=== PATIENT | male | born 1940 | race Caucasian/White ===

== ENCOUNTER 2017-04-02 15:16 | Outpatient (CLI) | payer MEDICARE, MEDICAID | END 2017-04-02 15:17 | disposition home or self-care (01) | DX: R73.01 Impaired fasting glucose (principal); E78.5 Hyperlipidemia, unspecified; Z13.29 Encounter for screening for other suspected endocrine disorder; D53.9 Nutritional anemia, unspecified ==

== ENCOUNTER 2017-10-15 15:39 | Outpatient (CLI) | payer MEDICARE, MEDICAID ==
[2017-10-15 16:01] LABS: CREATININE 0.9 mg/dL (0.6-1.2)
== END 2017-10-15 15:40 | disposition home or self-care (01) ==
LOC: LAB 15:39
PROVIDERS: ATTEND Orthopaedic Surgery
DX: M54.5 Low back pain (principal); Z01.818 Encounter for other preprocedural examination; R79.89 Other specified abnormal findings of blood chemistry
CPT/HCPCS: 36415; 82565; 84520

== ENCOUNTER 2018-07-04 14:02 | Outpatient (CLI) | payer MEDICARE, MEDICAID ==
[2018-07-04 14:29] LABS: BASOPHILS % (AUTO) 0.8 %; EOSINOPHILS # (AUTO) 0.4 10^3/uL (0.0-0.7); EOSINOPHILS % (AUTO) 7.4 %; HGB - HEMOGLOBIN 15.2 g/dL (14.0-18.0); LYMPHOCYTES # (AUTO) 1.3 10^3/uL (1.5-3.5); MEAN CORPUSCULAR HGB CONC 34.7 g/dL (32.0-36.0); MEAN CORPUSCULAR VOLUME 95.1 fL (80.0-94.0); MONOCYTES # (AUTO) 0.5 10^3/uL (0.0-1.0); NEUTROPHILS # (AUTO) 3.6 10^3/uL (1.5-6.6); NEUTROPHILS % (AUTO) 60.8 %; PLT - PLATELET COUNT 227 10^3/uL (130-450); RED BLOOD COUNT 4.61 10^6/uL (4.70-6.10); RED CELL DISTRIBUTION WIDTH 13.2 % (12.0-15.0)
[2018-07-04 15:52] LABS: ALBUMIN 3.8 g/dL (3.2-5.5); ALBUMIN/GLOBULIN RATIO 1.2 (1.0-2.2); ALKALINE PHOSPHATASE 80 IU/L (42-121); ALT ALANINE AMINOTRANSFERASE 23 IU/L (10-60); AST ASPARTATE AMINOTRANSFERASE 24 IU/L (10-42); BILIRUBIN,TOTAL 0.6 mg/dL (0.2-1.0); BUN - BLOOD UREA NITROGEN 16 mg/dL (6-20); CARBON DIOXIDE - CO2 28 mmol/L (21-32); CHLORIDE 106 mmol/L (101-111); CHOL/HDL RATIO 4.2 (<5.0); CHOLESTEROL 257 mg/dL; GFR - MDRD 72 (>89); GLUCOSE 117 mg/dL (70-100); HDL CHOLESTEROL 61 mg/dL; LDL CHOLESTEROL,CALCULATED 183 mg/dL; SODIUM 140 mmol/L (135-145); TOTAL PROTEIN 7.1 g/dL (6.7-8.2); VLDL CHOLESTEROL 13 mg/dL
[2018-07-04 16:23] LABS: HB2 TOTAL 16.1 g/dL; HEMOGLOBIN A1C 0.63 g/dL; HEMOGLOBIN A1C % 5.7 % (4.6-6.2)
== END 2018-07-04 14:03 | disposition home or self-care (01) ==
LOC: LAB 14:02
PROVIDERS: ATTEND Nurse Practitioner Family
DX: E78.5 Hyperlipidemia, unspecified (principal); D53.9 Nutritional anemia, unspecified; R73.01 Impaired fasting glucose
CPT/HCPCS: 36415; 80053; 80061; 83036; 83721; 85025

== ENCOUNTER 2018-07-10 16:35 | Emergency (ER) | payer MEDICARE, MEDICAID ==
[2018-07-10 16:39] VITALS: BP 215/101
--- NOTE | 2018-07-10 17:32 | ED Physician Documentation ---
History of Present Illness - Stated complaint Stated Complaint: L ARM RASH - Chief complaint Chief Complaint: General - Additonal information Additional information: hx from pt 77 male had a blood draw recently has a red rash L AC where tape was and fears it is infected no fever feels tired no CP cough SOA abd pain NV Review of Systems Constitutional: reports: Fatigue. denies: Fever Cardiac: denies: Chest pain / pressure Respiratory: denies: Dyspnea, Cough GI: denies: Abdominal Pain, Nausea, Vomiting, Diarrhea Skin: reports: Rash PD PAST MEDICAL HISTORY - Present Medications Home Medications: Ambulatory Orders Medication Instructions Recorded Confirmed HYDROcod/ACETAM 5/325 [Vicodin 1 - 2 ea PO Q6H PRN 07/16/14 07/16/14 5/325] Multivitamin [Multivitamins] 1 each PO DAILY 07/16/14 07/16/14 Red Yeast Rice 1,200 mg PO DAILY 07/16/14 07/16/14 Gipsy Oil/Dale-3 Fatty Acids 1 cap PO DAILY 07/16/14 07/16/14 [Gipsy Oil 1,000 mg Softgel] Hydrocortisone 1% Oint 1 applic TP BID PRN #1 tube 07/10/18 [Hydrocortisone] Mupirocin Calcium [Bactroban] 1 applic TP BID #30 cream..g. 07/10/18 - Allergies Allergies/Adverse Reactions: Allergies Allergy/AdvReac Type Severity Reaction Status Date / Time No Known Drug Allergies Allergy Verified 07/16/14 08:44 PD ED PE NORMAL - Vitals Vital signs reviewed: Yes - General General: Alert and oriented X 3 - HEENT HEENT: PERRL, Other (good color) - Cardiac Cardiac: RRR - Respiratory Respiratory: No respiratory distress, Clear bilaterally - Derm Derm: Other (L AC clearly demarcated deeply erythematous slightly vesicular rectangle shaped rash to L AC) Results - Vitals Vitals: Vital Signs - 24 hr 07/10/18 16:38 Temperature 36 C L Heart Rate 95 Respiratory 18 Rate Blood Pressure 215/101 H O2 Saturation 94 Oxygen O2 Source Room air PD MEDICAL DECISION MAKING - ED course ED course: looks most like contact derm from tape Departure - Departure Disposition: 01 Home, Self Care Clinical Impression: Contact dermatitis Qualifiers: Contact dermatitis type: irritant Contact dermatitis trigger: unspecified trigger Qualified Code(s): L24.9 - Irritant contact dermatitis, unspecified cause Condition: Good Instructions: ED Dermatitis Contact Follow-Up: Nataliia Quintero ARNP [Primary Care Provider] - Prescriptions: Hydrocortisone 1% Oint [Hydrocortisone] 1 applic TP BID PRN #1 tube PRN Reason: rash Mupirocin Calcium [Bactroban] 1 applic TP BID #30 cream..g. Comments: Try the steroid cream first If not better after three days of steroid cream, change to the antibiotic cream Return if worse And please get your blood pressure rechecked - it was high today
== END 2018-07-10 17:47 | disposition home or self-care (01) ==
LOC: ED 16:35
DX: L25.8 Unspecified contact dermatitis due to other agents (principal); R03.0 Elevated blood-pressure reading, without diagnosis of hypertension
CPT/HCPCS: 99281; 99283

== ENCOUNTER 2018-11-05 09:39 | Outpatient (CLI) | payer MEDICARE, MEDICAID ==
--- NOTE | 2018-11-05 16:20 | MRI Report ---
Reason: CERVICAL RADICULOPATHY Procedure Date: 11/05/2018 Accession Number: [id number] / [id number] Procedure: MRI - Cervical Spine W/O CPT Code: FULL RESULT: MRI CERVICAL SPINE WITHOUT CONTRAST INDICATION: 78-year-old male with cervical radiculopathy. TECHNIQUE: 1. Sagittal STIR, T1 and T2. 2. Axial T1, T2 and T2* FFE. COMPARISON: 07/18/2015 FINDINGS: Postsurgical changes are again demonstrated with evidence of previous anterior cervical diskectomy and fusion (ACDF) at C6-C7. There is solid interbody fusion across the C6-C7 disk space. The coronal localizer demonstrates a dextroconvex upper thoracic scoliosis with compensatory mild levoconvex cervical curvature. In the sagittal plane, again demonstrated is mild retrolisthesis of C4 on C5 (2.5 mm) and anterolisthesis of C7 on T1 (3.6 mm) unchanged. Demonstrated is small disk space narrowing with moderate narrowing at C5-C6, moderate to severe narrowing at C4-C5, severe narrowing at C5-C6 and moderate narrowing at C7-T1. There is abnormal T1 hypointense and STIR hyperintense marrow signal change in the left pedicle, lateral mass and transverse process of T1. This could represent reactive marrow change secondary to left C7-T1 degenerative facet arthrosis or degenerative change at the left costovertebral articulation. There is no edema in adjacent soft tissues. The marrow signal intensity is otherwise unremarkable. Axial images: C2-C3: No disk herniation. There is thickening of the ligamenta flava with mass-effect on the dorsal aspect of the thecal sac, unchanged. No significant spinal stenosis. Left-sided degenerative facet arthrosis with associated bony hypertrophy gives rise to at least moderate left-sided foraminal stenosis, unchanged. No significant right foraminal narrowing. C3-C4: Posterior spondylotic bar, slightly larger centrally to the left than the right. Thickening of the ligamenta flava. Mass-effect on the ventral and dorsal aspects of the thecal sac without significant-appearing associated spinal stenosis. There is a small amount of CSF surrounding the cord. No evidence of cord impingement. Uncovertebral and facet hypertrophy give rise to foraminal narrowing that appears to be mild to moderate on the right and probably moderate on the left. C4-C5: Posterior spondylotic bar indenting the ventral aspect of the thecal sac and thickening of the ligamenta flava cause mass-effect on the dorsal aspect of the dural sac. The mid sagittal canal diameter is reduced to about 9.6 mm. The CSF surrounding the cord is almost completely effaced, similar to previous study. No flattening or deformity of the cord to suggest impingement. Uncovertebral and facet hypertrophy give rise to foraminal narrowing that appears to be moderate, bordering on moderate to severe on the right and moderate on the left (see sagittal sequence). C5-C6: No focal disk herniation. No spinal stenosis. Mild to moderate bony foraminal stenoses. C6-C7: No spinal stenosis or significant foraminal narrowing. C7-T1: Anterolisthesis with associated uncovering of the disk. No disk herniation or spinal stenosis. There appears to be severe right foraminal stenosis due to a combination of facet and uncovertebral hypertrophy (see images 12 and 13 of series 501). Unchanged. There is moderate to severe left-sided foraminal narrowing that appears to have shown interval progression since the prior study. Again demonstrated are small intraforaminal disk herniations at T1-T2 with associated mild to moderate foraminal stenoses. The spinal cord continues to have a normal signal intensity throughout. IMPRESSION: 1. Essentially stable appearance of the cervical spine when compared to previous study 07/17/2015. 2. Again demonstrated is multilevel chronic degenerative cervical spondylosis with associated spinal canal narrowing, most prominent at the C4-C5 disk level where the mid sagittal canal diameter is reduced to about 9.6 mm and the CSF surrounding the cord is almost completely effaced. No flattening or deformity of the cord is demonstrated to suggest cord impingement. 3. Again demonstrated are multilevel bony foraminal stenoses. With respect to the right-sided foramen, the most significant narrowing appears to be at C7-T1 where there is severe stenosis and possible compromise of the exiting right C8 nerve area. Recommend clinical correlation for right C8 radiculopathy. With respect to the left-sided neural foramina, the most significant stenosis is also at C7-T1 where the degree of foraminal narrowing appears to have progressed since the prior study. There could be compromise of exiting left C8 nerve root. Recommend clinical correlation for left C8 radiculopathy. 4. Noted is abnormal T1 hypointense and STIR hyperintense marrow signal in the left pedicle, lateral mass, and transverse process of T1. This probably represents reactive marrow edema secondary to degenerative joint disease at the left C7-T1 facet joint or the left costovertebral/costotransverse articulation. The possibility of infection is considered less likely. Clinical correlation is advised. In particular, is there any elevation of the WBC, CRP or ESR to suggest the possibility of infection?
== END 2018-11-05 09:40 | disposition home or self-care (01) ==
LOC: DI 09:39
PROVIDERS: ATTEND Orthopaedic Surgery
DX: M47.22 Other spondylosis with radiculopathy, cervical region (principal); M48.02 Spinal stenosis, cervical region
CPT/HCPCS: 72141

== ENCOUNTER 2018-11-20 07:25 | Day surgery (SDC) | payer MEDICARE, MEDICAID ==
[2018-11-20] MEDS ORDERED: LACTATED RINGERS 1,000 ML IV ONE ×2 (07:49→09:21)
[2018-11-20] MEDS ORDERED: fentaNYL 250 MCG/5 ML VIAL IVP ONE (08:41)
[2018-11-20] MEDS ORDERED: MIDAZOLAM 2 MG/2 ML VIAL IVP ONE (08:41)
[2018-11-20] MEDS ORDERED: LIDO GARGLE 30 ML BOTTLE TOP ONE (08:45)
[2018-11-20] MEDS ORDERED: LIDO GARGLE 30 ML BOTTLE ONE (08:48)
[2018-11-20 10:05] VITALS: BP 131/68
== END 2018-11-20 07:26 | disposition home or self-care (01) ==
LOC: SDS 07:25
PROVIDERS: ATTEND Internal Medicine Gastroenterology
PROC: 0DB38ZX Excision of Lower Esophagus, Via Natural or Artificial Opening Endoscopic, Diagnostic (ICD-10-PCS; 2018-11-20)
PROC: 0DB78ZX Excision of Stomach, Pylorus, Via Natural or Artificial Opening Endoscopic, Diagnostic (ICD-10-PCS; 2018-11-20)
PROC: 0DB28ZX Excision of Middle Esophagus, Via Natural or Artificial Opening Endoscopic, Diagnostic (ICD-10-PCS; 2018-11-20)
PROC: 0DBP8ZX Excision of Rectum, Via Natural or Artificial Opening Endoscopic, Diagnostic (ICD-10-PCS; principal; 2018-11-20 08:45)
PROC: 0DBN8ZZ Excision of Sigmoid Colon, Via Natural or Artificial Opening Endoscopic (ICD-10-PCS; 2018-11-20 08:45)
DX: R19.4 Change in bowel habit (principal); K21.9 Gastro-esophageal reflux disease without esophagitis; R13.10 Dysphagia, unspecified; D12.5 Benign neoplasm of sigmoid colon; K62.1 Rectal polyp; K57.30 Diverticulosis of large intestine without perforation or abscess without bleeding; K31.9 Disease of stomach and duodenum, unspecified; K29.80 Duodenitis without bleeding
CPT/HCPCS: 43239; 45380; 87081; A9270; J3010; J7120

== ENCOUNTER 2019-05-04 13:38 | Outpatient (CLI) | payer MEDICARE, MEDICAID ==
[2019-05-04 14:21] LABS: BASOPHILS % (AUTO) 0.5 %; EOSINOPHILS # (AUTO) 0.4 10^3/uL (0.0-0.7); EOSINOPHILS % (AUTO) 7.1 %; HGB - HEMOGLOBIN 15.1 g/dL (14.0-18.0); LYMPHOCYTES # (AUTO) 1.4 10^3/uL (1.5-3.5); LYMPHOCYTES % (AUTO) 23.4 %; MEAN CORPUSCULAR HEMOGLOBIN 32.5 pg (27.0-31.0); MEAN CORPUSCULAR VOLUME 98.3 fL (80.0-94.0); MEAN PLATELET VOLUME 10.2 fL (7.4-11.4); MONOCYTES # (AUTO) 0.5 10^3/uL (0.0-1.0); MONOCYTES % (AUTO) 8.8 %; NEUTROPHILS # (AUTO) 3.5 10^3/uL (1.5-6.6); NEUTROPHILS % (AUTO) 59.9 %; PLT - PLATELET COUNT 224 10^3/uL (130-450); RED BLOOD COUNT 4.65 10^6/uL (4.70-6.10); RED CELL DISTRIBUTION WIDTH 13.1 % (12.0-15.0); WHITE BLOOD COUNT 5.9 x10^3/uL (4.8-10.8)
[2019-05-04 14:28] LABS: BILIRUBIN,URINE NEGATIVE (NEGATIVE); GLUCOSE, URINE (UA) NEGATIVE (NEGATIVE); KETONES,URINE (UA) NEGATIVE (NEGATIVE); LEUKOCYTE ESTERASE, URINE SMALL (NEGATIVE); NITRITE,URINE NEGATIVE (NEGATIVE); OCCULT BLOOD,URINE TRACE-INTA (NEGATIVE); PH,URINE 7.5 PH (5.0-7.5); PROTEIN,URINE NEGATIVE (NEGATIVE); UROBILINOGEN,URINE 0.2 (NORMAL) E.U./dL (NORMAL)
[2019-05-04 14:30] LABS: CLARITY,URINE CLEAR (CLEAR)
[2019-05-04 14:32] LABS: ALBUMIN 3.9 g/dL (3.2-5.5); ALBUMIN/GLOBULIN RATIO 1.1 (1.0-2.2); ALKALINE PHOSPHATASE 80 IU/L (42-121); ALT ALANINE AMINOTRANSFERASE 14 IU/L (10-60); AST ASPARTATE AMINOTRANSFERASE 16 IU/L (10-42); BILIRUBIN,TOTAL 0.8 mg/dL (0.2-1.0); BUN - BLOOD UREA NITROGEN 16 mg/dL (6-20); CALCIUM 9.4 mg/dL (8.5-10.3); CARBON DIOXIDE - CO2 29 mmol/L (21-32); CHLORIDE 106 mmol/L (101-111); CHOL/HDL RATIO 4.3 (<5.0); CHOLESTEROL 221 mg/dL; CREATININE 0.9 mg/dL (0.6-1.2); GFR - MDRD 81 (>89); GLUCOSE 108 mg/dL (70-100); HDL CHOLESTEROL 52 mg/dL; LDL CHOLESTEROL,CALCULATED 156 mg/dL; SODIUM 144 mmol/L (135-145); TOTAL PROTEIN 7.3 g/dL (6.7-8.2); VLDL CHOLESTEROL 13 mg/dL
[2019-05-04 14:39] LABS: BACTERIA,URINE None Seen /HPF (None Seen); RBC,URINE 0-5 /HPF (0-5); SQUAMOUS EPITHELIAL CELL,UR MOD Squamous (<= Few)
[2019-05-05 11:46] LABS: HEMOGLOBIN A1C 0.71 g/dL; HEMOGLOBIN A1C % 6.2 % (4.6-6.2)
== END 2019-05-04 13:39 | disposition home or self-care (01) ==
LOC: LAB 13:38
PROVIDERS: ATTEND Internal Medicine
DX: Z79.899 Other long term (current) drug therapy (principal); R73.01 Impaired fasting glucose; F41.9 Anxiety disorder, unspecified; I25.10 Atherosclerotic heart disease of native coronary artery without angina pectoris; M48.00 Spinal stenosis, site unspecified
CPT/HCPCS: 36415; 80053; 80061; 81001; 81003; 83036; 83721; 84443; 85025; 87086

== ENCOUNTER 2019-05-11 13:27 | Outpatient (CLI) | payer MEDICARE, MEDICAID ==
--- NOTE | 2019-05-12 15:53 | CT Report ---
Reason: LUNG CANCER SCREENING Procedure Date: 05/11/2019 Accession Number: [id number] / [id number] Procedure: CT - Low Dose Lung Cancer Screen CPT Code: FULL RESULT: EXAM CT LUNG SCREEN EXAM DATE: 05/11/2019 02:00 PM. HISTORY: 78-year-old patient with history of smoking, [id number] smoking history. Currently smoking: Unknown. Years since quitting: Unknown. COMPARISON: ABDOMEN/PELVIS W/O 10/26/2013 2:41 PM. TECHNIQUE: CT examination of the entire thorax without contrast was performed using low-dose technique. Thin section coronal, axial, sagittal and MIP axial images were obtained. In accordance with CT protocol optimization, one or more of the following dose reduction techniques were utilized for this exam: automated exposure control, adjustment of mA and/or KV based on patient size, or use of iterative reconstructive technique. FINDINGS: Nodules: Several small subpleural nodules are present bilaterally measuring no more than 3 mm, typically benign lymph nodes. No parenchymal nodules identified. Right upper lobe: None. Right middle lobe: None. Right lower lobe: None. Left upper lobe: None. Left lower lobe: None. Emphysema: Mild changes of some centrilobular emphysema present about the upper guard and lower lobes. Pleura: Unremarkable. Aorta: Unremarkable. Mediastinum: Unremarkable. Coronary calcifications: Mild diffuse coronary arterial vascular calcifications present. Coronary artery bypass grafting has been performed. Other pulmonary findings: No consolidation, effusions or edema. Other extrapulmonary findings: A probable simple cyst of the right hepatic lobe measuring 2.9 cm present. IMPRESSION: Lung-RADS ASSESSMENT CATEGORY: 1 - negative. No suspicious pulmonary nodules identified. Probability of malignancy: Less than 1%. RECOMMENDATION: Recommended follow up in 12 months based on ACR Lung-RADS Version 1.1 Guidelines. [facility]IA
== END 2019-05-11 13:28 | disposition home or self-care (01) ==
LOC: DI 13:27
PROVIDERS: ATTEND Internal Medicine
DX: Z12.2 Encounter for screening for malignant neoplasm of respiratory organs (principal); J43.9 Emphysema, unspecified; Z87.891 Personal history of nicotine dependence

== ENCOUNTER 2020-03-30 15:22 | Outpatient (CLI) | payer MEDICARE, MEDICAID | END 2020-03-30 15:23 | disposition home or self-care (01) | LOC: LAB 15:22 | PROVIDERS: ATTEND Internal Medicine | DX: Z11.59 Encounter for screening for other viral diseases (principal) | CPT/HCPCS: 81599 ==

== ENCOUNTER 2020-04-06 15:24 | Outpatient (CLI) | payer MEDICARE, MEDICAID ==
--- NOTE | 2020-04-06 17:01 | MRI Report ---
PROCEDURE: Thoracic Spine W/O INDICATIONS: MID THORACIC PAIN TECHNIQUE: Noncontrast sagittal T1 spine echo and T2 fast spin echo, sagittal STIR, axial T1 and T2 fast spin ec ho through the thoracic spine. COMPARISON: None. FINDINGS: Image quality: Excellent. Alignment and Curvature: There is normal bony alignment. Bone Marrow: Marrow is of normal overall signal. No acute vertebral body compression fractures. Old mild compressions of T8, T11, and T12. Spinal Cord: Visualized spinal cord is normal in size and signal. Paraspinous Soft Tissues: No paravertebral masses. Miscellaneous: On axial images, central canal and foramina appear widely patent at all scanned level s. There is a mild right posterior disc protrusion at T6-T7. There is minimal posterior disc bulge at T9 -T10. IMPRESSION: 1. Normal thoracic cord signal and caliber. No canal stenosis or foraminal stenosis. 2. Mild right posterior disc protrusion at T6-T7 without significant canal compromise. 3. Multiple old mild compressions. Reviewed by: Ag Moore MD on 04/06/2020 5:00 PM PDT Approved by: Ag Moore MD on 04/06/2020 5:00 PM PDT Station ID: [id number]
== END 2020-04-06 15:25 | disposition home or self-care (01) ==
LOC: DI 15:24
PROVIDERS: ATTEND Orthopaedic Surgery
DX: M51.24 Other intervertebral disc displacement, thoracic region (principal); M51.84 Other intervertebral disc disorders, thoracic region
CPT/HCPCS: 72146

== ENCOUNTER 2021-06-05 13:42 | Outpatient (CLI) | payer MEDICARE, MEDICAID ==
--- NOTE | 2021-06-05 16:58 | MRI Report ---
PROCEDURE: Shoulder RT W/O INDICATIONS: RIGHT SHOULDER PAIN TECHNIQUE: Noncontrast oblique coronal inversion recovery, oblique sagittal T1 spin echo and inversion recovery, axial T1 spin echo and inversion recovery through the shoulder. COMPARISON: None. FINDINGS: Image quality: Excellent. Rotator cuff: There is full-thickness tearing of the supraspinatus tendon from its distal insertion measuring approximately 11 mm in anteroposterior dimension with up to 25 mm of proximal tendon retrac tion. The infraspinatus tendon demonstrates moderate tendinosis and low-grade intrasubstance tearing. The teres minor and subscapularis tendons are intact. There is mild atrophy of the supraspinatus and infraspinatus muscles with grade 2 fatty infiltration of the infraspinatus muscle. Bones and bursae: No acute trabecular bone injury. Mild degenerative spurring is seen in the glenoid rim. Moderate degenerative changes are seen at the acromioclavicular joint. A moderate glenohumeral j oint effusion communicative the subacromial/subdeltoid bursa. Capsule and soft tissues: There is nondisplaced tearing of the superior to posterosuperior labrum, w hich may be chronic. There is complete tearing and distal retraction of the biceps long head tendon. Fluid is seen in the region of the proximal biceps muscle, included only on sagittal images. Partial effacement of the normal fat is seen in the rotator interval. The glenohumeral ligaments are intact. IMPRESSION: 1. Full-thickness tearing of the supraspinatus tendon from its distal insertion measuring 11 mm in a nteroposterior dimension with 25 mm of proximal tendon retraction. 2. Moderate infraspinatus tendinosis with superimposed low-grade intrasubstance tearing at the dista l insertion. 3. Complete tearing and distal retraction of the biceps long head tendon. Fluid or hemorrhage is par tially imaged in the region of the proximal biceps muscle that is not well evaluated. 4. Nondisplaced tearing of the superior to posterosuperior labrum, which may be chronic. 5. Moderate acromioclavicular joint osteoarthrosis. 6. A moderate glenohumeral effusion communicates with the subacromial/subdeltoid and subcoracoid bur sa. Reviewed by: Khoi Saleh MD on 06/05/2021 4:57 PM PDT Approved by: Khoi Saleh MD on 06/05/2021 4:57 PM PDT Station ID: [id number]
== END 2021-06-05 13:43 | disposition home or self-care (01) ==
LOC: DI 13:42
PROVIDERS: ATTEND Internal Medicine
DX: M75.121 Complete rotator cuff tear or rupture of right shoulder, not specified as traumatic (principal); S46.111A Strain of muscle, fascia and tendon of long head of biceps, right arm, initial encounter; S43.491A Other sprain of right shoulder joint, initial encounter; M19.011 Primary osteoarthritis, right shoulder; M25.411 Effusion, right shoulder

== ENCOUNTER 2021-07-11 13:30 | Outpatient (CLI) | payer MEDICARE, MEDICAID ==
--- NOTE | 2021-07-12 09:41 | XRAY Report ---
PROCEDURE: Shoulder 3 View RT INDICATIONS: RIGHT SHOULDER PAIN TECHNIQUE: 4 views of the shoulder were acquired. COMPARISON: None. FINDINGS: Bones: No fractures or dislocations. There is mild to moderate acromioclavicular joint degeneration . There is mild lateral downsloping of the acromion with mild inferior spurring laterally. No suspici ous bony lesions. Visualized ribs appear intact. Soft tissues: No suspicious soft tissue calcifications. IMPRESSION: 1. Mild to moderate acromioclavicular joint degeneration. 2. Mild lateral downsloping of the acromion with mild inferior spurring may be associated with rotato r cuff tearing. Reviewed by: Ronni Hassan MD on 07/12/2021 9:40 AM PDT Approved by: Ronni Hassan MD on 07/12/2021 9:40 AM PDT Station ID: [id number]
== END 2021-07-11 23:59 ==
LOC: DI.N 13:30
PROVIDERS: ATTEND Orthopaedic Surgery
DX: M19.011 Primary osteoarthritis, right shoulder (principal); R93.6 Abnormal findings on diagnostic imaging of limbs

== ENCOUNTER 2021-11-08 14:51 | Outpatient (CLI) | payer MEDICARE, MEDICAID ==
[2021-11-08 15:27] LABS: BASOPHILS % (AUTO) 0.5 %; EOSINOPHILS # (AUTO) 0.1 10^3/uL (0.0-0.7); EOSINOPHILS % (AUTO) 2.3 %; HCT - HEMATOCRIT 45.7 % (42.0-52.0); HGB - HEMOGLOBIN 14.9 g/dL (14.0-18.0); LYMPHOCYTES # (AUTO) 1.4 10^3/uL (1.5-3.5); LYMPHOCYTES % (AUTO) 24.7 %; MEAN CORPUSCULAR HGB CONC 32.6 g/dL (32.0-36.0); MEAN CORPUSCULAR VOLUME 98.1 fL (80.0-94.0); MEAN PLATELET VOLUME 10.5 fL (7.4-11.4); MONOCYTES # (AUTO) 0.5 10^3/uL (0.0-1.0); MONOCYTES % (AUTO) 8.6 %; NEUTROPHILS # (AUTO) 3.6 10^3/uL (1.5-6.6); NEUTROPHILS % (AUTO) 63.5 %; PLT - PLATELET COUNT 204 10^3/uL (130-450); RED BLOOD COUNT 4.66 10^6/uL (4.70-6.10); RED CELL DISTRIBUTION WIDTH 12.6 % (12.0-15.0); WHITE BLOOD COUNT 5.6 x10^3/uL (4.8-10.8)
[2021-11-08 15:38] LABS: ALBUMIN 4.3 g/dL (3.2-5.5); ALBUMIN/GLOBULIN RATIO 1.3 (1.0-2.2); ALKALINE PHOSPHATASE 83 IU/L (42-121); ALT ALANINE AMINOTRANSFERASE 17 IU/L (10-60); AST ASPARTATE AMINOTRANSFERASE 23 IU/L (10-42); BILIRUBIN,TOTAL 0.8 mg/dL (0.2-1.0); BUN - BLOOD UREA NITROGEN 16 mg/dL (6-20); CALCIUM 9.4 mg/dL (8.5-10.3); CARBON DIOXIDE - CO2 30 mmol/L (21-32); CHLORIDE 101 mmol/L (101-111); CHOL/HDL RATIO 3.9 (<5.0); CHOLESTEROL 228 mg/dL; CREATININE 1.1 mg/dL (0.6-1.2); GFR - MDRD 64 (>89); GLUCOSE 122 mg/dL (70-100); HDL CHOLESTEROL 58 mg/dL; LDL CHOLESTEROL,CALCULATED 158 mg/dL; LDL/HDL RATIO 2.7 (<3.6); POTASSIUM 4.3 mmol/L (3.5-5.0); SODIUM 140 mmol/L (135-145); TOTAL PROTEIN 7.5 g/dL (6.7-8.2); TRIGLYCERIDES 58 mg/dL; VLDL CHOLESTEROL 12 mg/dL
[2021-11-08 15:40] LABS: THYROID STIMULATING HORMONE 2.1 uIU/mL (0.34-5.60)
[2021-11-08 20:20] LABS: ESTIMATED AVERAGE GLUCOSE 117 mg/dL (70-100); HEMOGLOBIN A1c% 5.7 % (4.27-6.07)
[2021-11-10 23:41] LABS: ALBUMIN 4.2 g/dL (3.8-4.8); ALPHA 1 GLOBULIN 0.3 g/dL (0.2-0.3); ALPHA 2 GLOBULIN 0.7 g/dL (0.5-0.9); BETA 1 GLOBULIN 0.4 g/dL (0.4-0.6); BETA 2 GLOBULIN 0.3 g/dL (0.2-0.5); GAMMA GLOBULIN 1.2 g/dL (0.8-1.7)
== END 2021-11-08 14:52 | disposition home or self-care (01) ==
LOC: LAB 14:51
PROVIDERS: ATTEND Internal Medicine
DX: Z13.6 Encounter for screening for cardiovascular disorders (principal); Z79.899 Other long term (current) drug therapy; R73.9 Hyperglycemia, unspecified; G64 Other disorders of peripheral nervous system; N40.0 Benign prostatic hyperplasia without lower urinary tract symptoms; K22.70 Barrett's esophagus without dysplasia; I10 Essential (primary) hypertension
CPT/HCPCS: 36415; 80053; 80061; 82607; 83036; 83721; 84155; 84165; 84443; 85025

== ENCOUNTER 2021-11-14 15:06 | Outpatient (CLI) | payer MEDICARE, MEDICAID | END 2021-11-14 15:07 | disposition home or self-care (01) | LOC: LAB 15:06 | PROVIDERS: ATTEND Internal Medicine | DX: G64 Other disorders of peripheral nervous system (principal); Z13.6 Encounter for screening for cardiovascular disorders; Z79.899 Other long term (current) drug therapy; R73.9 Hyperglycemia, unspecified; N40.0 Benign prostatic hyperplasia without lower urinary tract symptoms; I10 Essential (primary) hypertension | CPT/HCPCS: 82570; 84156; 84166; 86335 ==

== ENCOUNTER 2021-11-21 08:25 | Outpatient (CLI) | payer MEDICARE, MEDICAID | END 2021-11-21 08:26 | disposition home or self-care (01) | LOC: LAB.R 08:25 | PROVIDERS: ATTEND Internal Medicine | DX: R51.9 Headache, unspecified (principal); G62.9 Polyneuropathy, unspecified | CPT/HCPCS: 85651; 86140 ==

== ENCOUNTER 2021-12-21 14:05 | Outpatient (CLI) | payer MEDICARE, MEDICAID ==
--- NOTE | 2021-12-22 08:36 | XRAY Report ---
PROCEDURE: Knee 4 View BILAT INDICATIONS: KNEE PAIN TECHNIQUE: 3 views of the left and right knee(s) were acquired. COMPARISON: X-ray knees, bilateral, 05/12. FINDINGS: Bones: No fractures or dislocations. No suspicious bony lesions. There is moderate osteoarthritic changes in right knee and mild osteoarthritic shortness in left knee. Osteopenia. Soft tissues: Small right knee joint effusion. No suspicious soft tissue calcifications. IMPRESSION: 1. Osteoarthritis, moderate in the right knee and mild in the left knee. 2. Osteopenia. 3. Small right knee joint effusion. Reviewed by: Kaila Chowdary MD on 12/22/2021 8:34 AM PDT Approved by: Kaila Chowdary MD on 12/22/2021 8:34 AM PDT Station ID: [id number]
== END 2021-12-21 14:06 | disposition home or self-care (01) ==
LOC: DI 14:05
PROVIDERS: ATTEND Physician Assistant
DX: M17.0 Bilateral primary osteoarthritis of knee (principal); M85.862 Other specified disorders of bone density and structure, left lower leg; M85.861 Other specified disorders of bone density and structure, right lower leg; M25.461 Effusion, right knee

== ENCOUNTER 2022-05-21 14:41 | Outpatient (CLI) | payer MEDICARE, MEDICAID ==
[2022-05-21 14:57] LABS: BASOPHILS % (AUTO) 0.3 %; EOSINOPHILS # (AUTO) 0.2 10^3/uL (0.0-0.7); EOSINOPHILS % (AUTO) 3.3 %; HCT - HEMATOCRIT 42.4 % (42.0-52.0); HGB - HEMOGLOBIN 14.7 g/dL (14.0-18.0); LYMPHOCYTES # (AUTO) 1.1 10^3/uL (1.5-3.5); MEAN CORPUSCULAR HGB CONC 34.7 g/dL (32.0-36.0); MEAN CORPUSCULAR VOLUME 95.3 fL (80.0-94.0); MONOCYTES # (AUTO) 0.5 10^3/uL (0.0-1.0); MONOCYTES % (AUTO) 7.3 %; NEUTROPHILS # (AUTO) 5.4 10^3/uL (1.5-6.6); NEUTROPHILS % (AUTO) 73.8 %; PLT - PLATELET COUNT 214 10^3/uL (130-450); RED BLOOD COUNT 4.45 10^6/uL (4.70-6.10); RED CELL DISTRIBUTION WIDTH 12.6 % (12.0-15.0); WHITE BLOOD COUNT 7.3 x10^3/uL (4.8-10.8)
[2022-05-21 15:16] LABS: CALCIUM 9.6 mg/dL (8.5-10.3); CREATININE 0.9 mg/dL (0.6-1.2)
[2022-05-21 20:19] LABS: ESTIMATED AVERAGE GLUCOSE 120 mg/dL (70-100); HEMOGLOBIN A1c% 5.8 % (4.27-6.07)
== END 2022-05-21 14:42 | disposition home or self-care (01) ==
LOC: LAB 14:41
PROVIDERS: ATTEND Orthopaedic Surgery
DX: Z01.818 Encounter for other preprocedural examination (principal); R73.9 Hyperglycemia, unspecified
CPT/HCPCS: 36415; 80048; 83036; 85025; 93005

== ENCOUNTER 2022-12-14 13:41 | Outpatient (CLI) | payer MEDICARE, MEDICAID ==
[2022-12-14] MEDS ORDERED: iohexoL-300 100 ML VIAL ONE (13:53)
[2022-12-14] MEDS ORDERED: iohexoL-300 100 ML VIAL IVP ONE (15:22)
[2022-12-14] MEDS ORDERED: DIATRIZOATE MEGLU/DIATRIZO SOD 30 ML BOTTLE PO ONE (15:23)
--- NOTE | 2022-12-14 16:39 | CT Report ---
PROCEDURE: ABDOMEN/PELVIS W INDICATIONS: DIVERTICULITIS CONTRAST: : 100ml omni 300 TECHNIQUE: After the administration of oral and intravenous contrast, 5 mm thick sections acquired from the diap hragms to the symphysis. 5 mm thick coronal and sagittal reformats were acquired. For radiation dos e reduction, the following was used: automated exposure control, adjustment of mA and/or kV accordin g to patient size. COMPARISON: 10/26/2013 FINDINGS: Lung bases and heart: Unremarkable. Liver: Cystic lesions with fluid attenuation, similar to 2014, most likely benign cysts. Gallbladder and biliary tree: Cholelithasis without wall thickening. Bile ducts measure within normal limits. Focal adenomyomatosis at the fundus. Spleen: Unremarkable. Pancreas: Unremarkable. Adrenals: Nodular thickening of the adrenal glands, stable since 2014, statistically benign. Kidneys: Unremarkable. Bowel and peritoneum: No bowel distension. No pathologic free fluid. Colonic diverticulosis. There is mild wall thickening of the sigmoid colon, without pericolic fat stranding. Lymph nodes: No central or retroperitoneal adenopathy. Vessels: Ectactic aorta; sonographic follow up recommended. PELVIS Reproductive organs: Prior TURP. Large hydroceles. Bladder and ureters: Unremarkable. Lymph nodes: No pelvic adenopathy. Bones: No aggressive osseous abnormality. Other: None IMPRESSION: 1.Sigmoid clinical thickening, without pericolic fat standing, in the presence of colonic diverticula . Findings may indicate resolved or mild diverticulitis, less likely colitis. Malignancy is also a co nsideration but lack of adjacent adenopathy does not favor this diagnosis. 2.Ectatic infrarenal aorta. Five-year sonographic follow-up is recommended. 3.Large testicular hydroceles. Reviewed by: Pancho Johnson on 12/14/2022 4:38 PM PDT Approved by: Pancho Johnson on 12/14/2022 4:38 PM PDT Station ID: [id number]
== END 2022-12-14 13:42 | disposition home or self-care (01) ==
LOC: LAB 13:41
PROVIDERS: ATTEND Surgery
DX: K57.32 Diverticulitis of large intestine without perforation or abscess without bleeding (principal); I77.819 Aortic ectasia, unspecified site; N43.3 Hydrocele, unspecified
CPT/HCPCS: 36415; 74177; 82565; Q9963; Q9967

== ENCOUNTER 2023-01-04 04:53 | Outpatient (CLI) | payer MEDICARE, MEDICAID | END 2023-01-04 04:54 | disposition critical access hospital (66) | LOC: EMS 04:53 | DX: R20.0 Anesthesia of skin (principal); F41.9 Anxiety disorder, unspecified | CPT/HCPCS: A0425; A0429 ==

== ENCOUNTER 2023-01-04 05:02 | Emergency (ER) | payer MEDICARE, MEDICAID ==
--- OUTSIDE RECORDS SUMMARY | 2023-01-04 05:14 | EXTERNAL MEDICAL SUMMARY RPT | Continuity of Care Document ---
:1940 Author Organization [facility] Address [address] [place] [address] Phone Care Team Providers Name Role Phone Unavailable Unavailable Unavailable Elliot Salazar Unavailable Unavailable Allergies and Intolerances date description facility type (no date) latex [facility] (unknown) Encounters No information. Functional Status No information. Immunizations No information. Medications date description facility 2022-12-27 00:00 Oxycodone [facility] 2022-12-27 00:00 Aspirin [facility] 2022-12-27 00:00 Acetaminophen [facility] Problems date description facility 2022-12-26 08:35 Unilateral primary osteoarthritis, [facility] 2022-12-27 06:46 Unilateral primary osteoarthritis, [facility] 2022-12-27 10:44 Unilateral primary osteoarthritis, [facility] 2022-12-27 16:04 Unilateral primary osteoarthritis, [facility] 2022-12-27 16:11 Unilateral primary osteoarthritis, [facility] 2022-12-27 16:16 Unilateral primary osteoarthritis, [facility] 2022-12-28 14:14 Unilateral primary osteoarthritis, [facility] Procedures date description facility 2022-12-26 00:00 Total Knee Arthroplasty (Right) [facility] Results/Labs test date author facility value unit interpret ation Result panel 1 (unknown) (no date) (unknown) [facility] (no value) (units ([facility]own[facility] Hospital unknown) Result panel 2 (unknown) (no date) (unknown) [facility] (no value) ([facility] unknown) Result panel 3 (unknown) (no (unknown) (unknown) (no value) (units (unk nown) date) unknown) (unknown) (no (unknown) (unknown) 12/26/22 (units (unkno wn) date) unknown) (unknown) (no (unknown) (unknown) [address] [place] [address] (units (unknown) date) unknown) (unknown) (no (unknown) (unknown) [id number] (units (unkno wn) date) unknown) (unknown) (no (unknown) (unknown) Accession (units (unkn own) date) Number: unknown) [id number] (unknown) (no (unknown) (unknown) Age/Sex: 82 / M (units (unknown) date) Date of Service: unknown) (unknown) (no (unknown) (unknown) SUJIT Bermudez (units ( unknown) date) [id number] unknown) (unknown) (no (unknown) (unknown) Approved by: (units (u nknown) date) Stefan Prajapati, adama) Meli on 12/26/2022 at 13:06 (unknown) (no (unknown) (unknown) Bones: Patient (units (unknown) date) is status post unknown) knee joint arthroplasty. Hardware components are (unknown) (no (unknown) (unknown) COMPARISON: (units (un known) date) None. 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 position (unknown) (no (unknown) (unknown) INDICATIONS: (units (u nknown) date) prosthesis unknown) placement (unknown) (no (unknown) (unknown) [facility] (units (unknown) date) unknown) (unknown) (no (unknown) (unknown) Loc: 206-1 (units ( unknown) date) unknown) (unknown) (no (unknown) (unknown) Ordering (units (unkno wn) date) Provider: unknown) Afsaneh Jon P.A-C (unknown) (no (unknown) (unknown) PROCEDURE: XR (units ( unknown) date) KNEE RT 1TO2V unknown) (unknown) (no (unknown) (unknown) Patient: (units (unkno wn) date) Mc Lauren MR#: unknown) [id number] (unknown) (no (unknown) (unknown) Procedure: XR (units ( unknown) date) knee RT 1to2V unknown) (unknown) (no (unknown) (unknown) Signed (units (unkno wn) date) unknown) (unknown) (no (unknown) (unknown) Soft tissues: (units ( unknown) date) Overlying unknown) postoperative changes are noted. (unknown) (no (unknown) (unknown) TECHNIQUE: 2 (units (u nknown) date) view(s) of the unknown) knee acquired. (unknown) (no (unknown) (unknown) XRay Report (units (un known) date) unknown) (unknown) (no (unknown) (unknown) expected (units (unkno wn) date) positions. unknown) Visualized bony structures are intact. (unknown) (no (unknown) (unknown) in (units (unkno wn) date) unknown) Result panel 4 (unknown) (no date) (unknown) (unknown) Negative (units (unkn own) unknown) (unknown) (no date) (unknown) (unknown) Negative (units (unkn own) unknown) Result panel 5 (unknown) (no date) (unknown) (unknown) (no value) (units (un known) unknown) (unknown) (no date) (unknown) (unknown) 12/26/22 1017 (units (unknown) unknown) (unknown) (no date) (unknown) (unknown) 3225 (units (unkn own) unknown) (unknown) (no date) (unknown) (unknown) Age/Sex: 82 / (units (unknown) M unknown) (unknown) (no date) (unknown) (unknown) Changes to (units (un known) H+P: No unknown) (unknown) (no date) (unknown) (unknown) : (units (unkn own) 1940 unknown) Acct:[id number] (unknown) (no date) (unknown) (unknown) Date of (units (unkn own) Service: unknown) 12/26/22 (unknown) (no date) (unknown) (unknown) History + (units (unk nown) Physical unknown) reviewed/Exam performed by Physician: Yes (unknown) (no date) (unknown) (unknown) Interval Note (units (unknown) unknown) (unknown) (no date) (unknown) (unknown) [facility] (units (unkn own) [facility] [address] unknown) [address] [place] [id number] (unknown) (no date) (unknown) (unknown) Patient: (units (unkn own) Mc Lauren unknown) MR#: [id number] (unknown) (no date) (unknown) (unknown) Pre-operative (units (unknown) Note unknown) (unknown) (no date) (unknown) (unknown) Provider: (units (unk nown) Elliot Salazar unknown) Romy SHERMAN (unknown) (no date) (unknown) (unknown) Signed (units (unkn own) By:<Electronic unknown) ally signed by Elliot Salazar MD> Result panel 6 (unknown) (no (unknown) (unknown) (no value) (units (unk nown) date) unknown) (unknown) (no (unknown) (unknown) 0.25% Marcaine (units (unknown) date) mixed with 20 ml unknown) Exparel and 4 mg of morphine for post-operative (unknown) (no (unknown) (unknown) 12/26/22 1235 (units ( unknown) date) unknown) (unknown) (no (unknown) (unknown) 3225 (units (unkno wn) date) unknown) (unknown) (no (unknown) (unknown) Ag dressing was (units (unknown) date) applied and the unknown) patient was taken to recovery having tolerated (unknown) (no (unknown) (unknown) Age/Sex: 82 / M (units (unknown) date) unknown) (unknown) (no (unknown) (unknown) Anesthesia Type: (units (unknown) date) Spinal, Sedation unknown) and Local (unknown) (no (unknown) (unknown) Applied: (units (unkno wn) date) implant(s) unknown) (unknown) (no (unknown) (unknown) Kitchen Food Server: Steve Nunez (units (unknown) date) Nader unknown) (unknown) (no (unknown) (unknown) Blood products (units (unknown) date) transfused: none unknown) (unknown) (no (unknown) (unknown) Click Yes if (units (u nknown) date) Unassisted: No unknown) (unknown) (no (unknown) (unknown) Closure Type: (units ( unknown) date) primary unknown) (unknown) (no (unknown) (unknown) Complications: (units (unknown) date) none unknown) (unknown) (no (unknown) (unknown) Condition: stable (units (unknown) date) unknown) (unknown) (no (unknown) (unknown) Corporation and (units (unknown) date) included the BCS II unknown) Journey total knee replacement with a size 8 (unknown) (no (unknown) (unknown) : 1940 (units (unknown) date) Acct:[id number] unknown) (unknown) (no (unknown) (unknown) Date of Service: (units (unknown) date) 12/26/22 unknown) (unknown) (no (unknown) (unknown) Date of procedure: (units (unknown) date) 12/26/22 unknown) (unknown) (no (unknown) (unknown) Disposition: PACU (units (unknown) date) unknown) (unknown) (no (unknown) (unknown) Estimated Blood (units (unknown) date) Loss (mL): 50 unknown) (unknown) (no (unknown) (unknown) Findings: (units (unkn own) date) unknown) (unknown) (no (unknown) (unknown) Jeannine II (units (unk nown) date) patella, and a 9 mm unknown) cross-linked polyethylene tibial insert. (unknown) (no (unknown) (unknown) Implants used in (units (unknown) date) this procedure were unknown) manufactured by the [employer] (unknown) (no (unknown) (unknown) Indications: (units (u nknown) date) unknown) (unknown) (no (unknown) (unknown) [facility] (units (unknown) date) [address] [place] [address] unknown) [place] [address] (unknown) (no (unknown) (unknown) Operative (units (unkn own) date) Date/Time/Diagnoses unknown) (unknown) (no (unknown) (unknown) Operative Note (units (unknown) date) unknown) (unknown) (no (unknown) (unknown) Operative Notes (units (unknown) date) unknown) (unknown) (no (unknown) (unknown) Patient: (units (unkno wn) date) Mc Lauren MR#: unknown) [id number] (unknown) (no (unknown) (unknown) Plan for (units (unkno wn) date) aftercare: unknown) (unknown) (no (unknown) (unknown) Post-op diagnosis: (units (unknown) date) same unknown) (unknown) (no (unknown) (unknown) Post-operative (units (unknown) date) unknown) (unknown) (no (unknown) (unknown) Pre-op diagnosis: (units (unknown) date) Right knee unknown) osteoarthritis (unknown) (no (unknown) (unknown) Procedure + (units (un known) date) Clinicians unknown) (unknown) (no (unknown) (unknown) Procedure in (units (u nknown) date) detail: unknown) (unknown) (no (unknown) (unknown) Procedure: (units (unk nown) date) unknown) (unknown) (no (unknown) (unknown) Prosthetic (units (unk nown) date) devices, grafts, unknown) tissues, transplants, or devices: (unknown) (no (unknown) (unknown) Provider: (units (unkn own) date) Elliot Salazar MD unknown) (unknown) (no (unknown) (unknown) Right total knee (units (unknown) date) replacement unknown) (unknown) (no (unknown) (unknown) Risks discussed (units (unknown) date) included, but were unknown) not limited to, failure to relieve pain, (unknown) (no (unknown) (unknown) Same procedure as (units (unknown) date) scheduled: Yes unknown) (unknown) (no (unknown) (unknown) Severe (units (unkno wn) date) osteoarthritis of unknown) the medial compartment with moderate patellofemoral (unknown) (no (unknown) (unknown) Signed (units (unkno wn) date) By:<Electronically unknown) signed by Elliot Salazar MD> (unknown) (no (unknown) (unknown) Specimen(s): none (units (unknown) date) sent unknown) (unknown) (no (unknown) (unknown) Surgeon: Ellito Stanton (units (unknown) date) Martin unknown) (unknown) (no (unknown) (unknown) The anterior (units (un known) date) osteophytes and unknown) soft tissues were removed. The rotational landmarks (unknown) (no (unknown) (unknown) The knee was (units (u nknown) date) approached through unknown) an approximately 18 cm incision centered over (unknown) (no (unknown) (unknown) The patient has (units (unknown) date) had progressively unknown) worsening right knee pain with radiographic (unknown) (no (unknown) (unknown) The patient was (units (unknown) date) seen in the unknown) pre-operative area, where the patient identified the (unknown) (no (unknown) (unknown) The patient will (units (unknown) date) be maintained on a unknown) standard total knee replacement protocol (unknown) (no (unknown) (unknown) The services of a (units (unknown) date) skilled surgical unknown) account management assistant were required during this case to (unknown) (no (unknown) (unknown) The tibia was (units ( unknown) date) prepared with the unknown) rotation set by an extra medullary guide. Trial (unknown) (no (unknown) (unknown) The trials were (units (unknown) date) then removed, and unknown) the femoral hole plugged with a bone plug. The (unknown) (no (unknown) (unknown) Time of procedure: (units (unknown) date) 12:32 unknown) (unknown) (no (unknown) (unknown) Tourniquet time (units (unknown) date) (min): 53 unknown) (unknown) (no (unknown) (unknown) Vicryl, and the (units (unknown) date) skin with a running unknown) 3-0 V-Lock suture and Dermabond. An Aquacel (unknown) (no (unknown) (unknown) Without the help (units (unknown) date) of Sara Doe, the unknown) procedure could not have gone forward in a (unknown) (no (unknown) (unknown) after cement (units (u nknown) date) curing. After unknown) confirming there was no extruded cement posteriorly, (unknown) (no (unknown) (unknown) alternatives to (units (unknown) date) surgery were unknown) discussed with the patient prior to proceeding. (unknown) (no (unknown) (unknown) and placed on the (units (unknown) date) operative table in unknown) the supine position. After satisfactory (unknown) (no (unknown) (unknown) anesthesia, a full (units (unknown) date) time out was unknown) performed. The right leg was encircled with a (unknown) (no (unknown) (unknown) applied and the (units (unknown) date) final prosthetics unknown) placed. Excess cement was removed during and (unknown) (no (unknown) (unknown) bone was prepared (units (unknown) date) with pulsatile unknown) lavage, and dried with a sponge. Cement was (unknown) (no (unknown) (unknown) chamfer cuts were (units (unknown) date) then made. The unknown) posterior osteophytes and soft tissues were (unknown) (no (unknown) (unknown) changes consistent (units (unknown) date) with arthritis. unknown) Non-operative management has failed and the (unknown) (no (unknown) (unknown) changes. (units (unkno wn) date) unknown) (unknown) (no (unknown) (unknown) component (units (unkn own) date) confirmed with the unknown) gap balancing system. The anterior, posterior and (unknown) (no (unknown) (unknown) created. The (units (u nknown) date) distal femoral cut unknown) was made in 6 degrees of valgus using the (unknown) (no (unknown) (unknown) discharged home (units (unknown) date) when safe for the unknown) home environment. (unknown) (no (unknown) (unknown) drapes. The leg (units (unknown) date) was elevated and unknown) exsanguinated with Eschmark bandage and the (unknown) (no (unknown) (unknown) electrocautery, (units (unknown) date) and intramedullary unknown) guide holes for the femur and tibia were (unknown) (no (unknown) (unknown) interrupted # 2 (units (unknown) date) polyester suture. unknown) The subcutaneous layer was closed with 3-0 (unknown) (no (unknown) (unknown) intramedullary (units (unknown) date) guide at the unknown) primary cut setting. The proximal tibial cut was (unknown) (no (unknown) (unknown) involved side. The (units (unknown) date) extension gap was unknown) checked and the rotation of the femoral (unknown) (no (unknown) (unknown) of Eldridge's (units (unknown) date) line and the unknown) transepicondylar axis were marked on the femur with (unknown) (no (unknown) (unknown) pain control. The (units (unknown) date) remainder of this unknown) mixture was injected into the capsule and (unknown) (no (unknown) (unknown) patellar (units (unkno wn) date) prosthetic. There unknown) was no need for a lateral release. (unknown) (no (unknown) (unknown) patient has (units (un known) date) requested total unknown) knee replacement. The risks, benefits and (unknown) (no (unknown) (unknown) patient received (units (unknown) date) pre-operative unknown) antibiotics, and was taken to the operating room (unknown) (no (unknown) (unknown) potential need for (units (unknown) date) eventual revision unknown) of the prosthetic. (unknown) (no (unknown) (unknown) provide (units (unkno wn) date) positioning, unknown) exposure and retraction to protect vital structures. (unknown) (no (unknown) (unknown) right cobalt (units (u nknown) date) chromium femur, 8 unknown) right non porous tibial base plate, 38 mm oval (unknown) (no (unknown) (unknown) right knee as the (units (unknown) date) operative site and unknown) this was marked with my initials. The (unknown) (no (unknown) (unknown) safe, expedient (units (unknown) date) fashion. unknown) (unknown) (no (unknown) (unknown) sequential (units (unk nown) date) compression devices unknown) for DVT prophylaxis. The patient will be (unknown) (no (unknown) (unknown) stability (units (unkn own) date) throughout the unknown) range. The patella was then cut to accommodate the (unknown) (no (unknown) (unknown) stiffness, (units (unk nown) date) infection, nerve unknown) damage, deep venous thrombosis, pulmonary embolism, (unknown) (no (unknown) (unknown) stroke, coma, (units ( unknown) date) heart attack, unknown) permanent paralysis and , as well as the (unknown) (no (unknown) (unknown) subcutaneous (units (u nknown) date) tissues during unknown) cement curing. (unknown) (no (unknown) (unknown) the final tibial (units (unknown) date) insert was placed. unknown) The knee was copiously irrigated and the (unknown) (no (unknown) (unknown) the patella and (units (unknown) date) carried into the unknown) knee through a medial parapatellar arthrotomy. (unknown) (no (unknown) (unknown) the procedure (units ( unknown) date) well. unknown) (unknown) (no (unknown) (unknown) the tourniquet (units (unknown) date) with ChloroPrep in unknown) the usual fashion and draped through sterile (unknown) (no (unknown) (unknown) then made using (units (unknown) date) the intramedullary unknown) guide, taking 9 mm of bone off the less (unknown) (no (unknown) (unknown) then removed. The (units (unknown) date) posterior capsule unknown) was injected with part of a mixture of 60 ml (unknown) (no (unknown) (unknown) through the (units (un known) date) femoral trial. unknown) Range of motion was 0-140 degrees, with good (unknown) (no (unknown) (unknown) tibial and femoral (units (unknown) date) components were unknown) then placed and the intercondylar notch cut (unknown) (no (unknown) (unknown) tourniquet about (units (unknown) date) the proximal thigh, unknown) and the leg was prepared from the toes to (unknown) (no (unknown) (unknown) tourniquet (units (unk nown) date) deflated. unknown) Hemostasis was obtained. The capsule was closed with (unknown) (no (unknown) (unknown) tourniquet (units (unk nown) date) inflated to 250 unknown) mmHg pressure. (unknown) (no (unknown) (unknown) with weight (units (un known) date) bearing as unknown) tolerated. The patient will receive aspirin and Result panel 7 (unknown) (no date) (unknown) (unknown) 11.1 g/dl (unkn own) (unknown) (no date) (unknown) (unknown) 32.2 % (unkn own) Result panel 8 (unknown) (no (unknown) (unknown) (no value) (units (unk nown) date) unknown) (unknown) (no (unknown) (unknown) (past 8 hours): (units (unknown) date) unknown) (unknown) (no (unknown) (unknown) 02:12 (units (unkno wn) date) unknown) (unknown) (no (unknown) (unknown) 12/26/22 (units (unkno wn) date) 12/27/22 unknown) (unknown) (no (unknown) (unknown) 12/26/22 13:18 (units (unknown) date) unknown) (unknown) (no (unknown) (unknown) 12/27/22 05:51 (units (unknown) date) unknown) (unknown) (no (unknown) (unknown) 12/27/22 (units (unkno wn) date) unknown) (unknown) (no (unknown) (unknown) 09:17 05:51 (units (un known) date) unknown) (unknown) (no (unknown) (unknown) 200 mg PO DAILY (units (unknown) date) PRN (Reason: unknown) Pain) (unknown) (no (unknown) (unknown) 3225 (units (unkno wn) date) unknown) (unknown) (no (unknown) (unknown) 5 mg PO DAILY (units ( unknown) date) PRN (Reason: unknown) Anxiety) (unknown) (no (unknown) (unknown) 600 mg PO (units (unkn own) date) BEDTIME unknown) (unknown) (no (unknown) (unknown) Activity: Walk (units (unknown) date) frequently! unknown) (unknown) (no (unknown) (unknown) Age/Sex: 82 / M (units (unknown) date) unknown) (unknown) (no (unknown) (unknown) Anesthesia Type: (units (unknown) date) Spinal, Sedation unknown) and Local (unknown) (no (unknown) (unknown) Lina Priest, (units (unknown) date) MD unknown) (unknown) (no (unknown) (unknown) Anxiety (units (unkno wn) date) unknown) (unknown) (no (unknown) (unknown) Applied: (units (unkno wn) date) implant(s) unknown) (unknown) (no (unknown) (unknown) Assessment and (units (unknown) date) Plan unknown) (unknown) (no (unknown) (unknown) Assessment: (units (un known) date) unknown) (unknown) (no (unknown) (unknown) Kitchen Food Server: Steve (units (unknown) date) Enrique Doe unknown) (unknown) (no (unknown) (unknown) Attending (units (unkn own) date) Provider: unknown) Elliot Salazar (unknown) (no (unknown) (unknown) 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 (unknown) (no (unknown) (unknown) Chief complaint: (units (unknown) date) OPB unknown) (unknown) (no (unknown) (unknown) Click Yes if (units (u nknown) date) Unassisted: No unknown) (unknown) (no (unknown) (unknown) Closure Type: (units ( unknown) date) primary unknown) (unknown) (no (unknown) (unknown) Cold/Heat (units (unkn own) date) Therapy: Ice to unknown) knee as needed for pain. (unknown) (no (unknown) (unknown) Comment: (units (unkno wn) date) unknown) (unknown) (no (unknown) (unknown) Consult to (units (unk nown) date) Discharge unknown) Planning Routine (unknown) (no (unknown) (unknown) Consult to (units (unk nown) date) Physical Therapy unknown) Evaluate + Treat (unknown) (no (unknown) (unknown) Consults: (units (unkn own) date) unknown) (unknown) (no (unknown) (unknown) Corporation and (units (unknown) date) included the BCS unknown) II [facility] total knee replacement with a size 8 (unknown) (no (unknown) (unknown) : 1940 (units (unknown) date) Acct:[id number] unknown) (unknown) (no (unknown) (unknown) Lina Priest, (units (unknown) date) [Primary Care unknown) Provider] (unknown) (no (unknown) (unknown) Date Patient (units (u nknown) date) Seen: 12/27/22 unknown) (unknown) (no (unknown) (unknown) Date of Service: (units (unknown) date) 12/26/22 unknown) (unknown) (no (unknown) (unknown) Date of (units (unkno wn) date) procedure: unknown) 12/26/22 (unknown) (no (unknown) (unknown) Deep Vein (units (unkn own) date) Thrombosis/Pulmon unknown) bertha Embolism Present on Admission: No (unknown) (no (unknown) (unknown) Diet/Activity/Tr (units (unknown) date) eatments unknown) (unknown) (no (unknown) (unknown) Diet: Diet as (units ( unknown) date) Tolerated unknown) (unknown) (no (unknown) (unknown) Discharge (units (unkn own) date) (Order); Ordered unknown) 12/27/22 (unknown) (no (unknown) (unknown) Discharge (units (unkn own) date) Assessment + Plan unknown) (unknown) (no (unknown) (unknown) Discharge Data (units (unknown) date) unknown) (unknown) (no (unknown) (unknown) Discharge Date: (units (unknown) date) 12/27/22 unknown) (unknown) (no (unknown) (unknown) Discharge (units (unkn own) date) Diagnosis: unknown) (unknown) (no (unknown) (unknown) Discharge (units (unkn own) date) Orders: unknown) (unknown) (no (unknown) (unknown) Discharge Plan (units (unknown) date) unknown) (unknown) (no (unknown) (unknown) Discharge (units (unkn own) date) Providers unknown) (unknown) (no (unknown) (unknown) Discharge (units (unkn own) date) Summary unknown) (unknown) (no (unknown) (unknown) Discharge home, (units (unknown) date) multimodal pain unknown) control, 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 Leave Aquacel dressing (unknown) (no (unknown) (unknown) Estimated Blood (units (unknown) date) Loss (mL): 50 unknown) (unknown) (no (unknown) (unknown) Exam (units (unkno wn) date) unknown) (unknown) (no (unknown) (unknown) Findings: (units (unkn own) date) unknown) (unknown) (no (unknown) (unknown) Follow (units (unkno wn) date) up/Referrals: unknown) (unknown) (no (unknown) (unknown) Jeannine II (units (unk nown) date) patella, and a 9 unknown) mm cross-linked polyethylene tibial insert. (unknown) (no (unknown) (unknown) HLD (units (unkno wn) date) (hyperlipidemia) unknown) (unknown) (no (unknown) (unknown) HTN (units (unkno wn) date) (hypertension) unknown) (unknown) (no (unknown) (unknown) Hct 32.2 L (units (unk nown) date) unknown) (unknown) (no (unknown) (unknown) Hearing impaired (units (unknown) date) unknown) (unknown) (no (unknown) (unknown) Hgb 11.1 L (units (unk nown) date) unknown) (unknown) (no (unknown) (unknown) History of (units (unk nown) date) Present Illness unknown) (unknown) (no (unknown) (unknown) History of (units (unk nown) date) prostate surgery unknown) (unknown) (no (unknown) (unknown) History of (units (unk nown) date) stapedectomy unknown) (unknown) (no (unknown) (unknown) History of (units (unk nown) date) surgery unknown) (unknown) (no (unknown) (unknown) Hospital Course (units (unknown) date) unknown) (unknown) (no (unknown) (unknown) Hx of LASIK (units (un known) date) unknown) (unknown) (no (unknown) (unknown) Implants used in (units (unknown) date) this procedure unknown) were manufactured by the [employer] (unknown) (no (unknown) (unknown) Indications: (units (u nknown) date) unknown) (unknown) (no (unknown) (unknown) Instructions: DI (units (unknown) date) for Knee unknown) Replacement (unknown) (no (unknown) (unknown) [facility] (units (unknown) date) [address] unknown) [place] [address] (unknown) (no (unknown) (unknown) Greta Spear PA-C (units (unknown) date) unknown) (unknown) (no (unknown) (unknown) Kidney stones (units ( unknown) date) unknown) (unknown) (no (unknown) (unknown) Laboratory (units (unk nown) date) Results - last 24 unknown) hr (unknown) (no (unknown) (unknown) Labs (units (unkno wn) date) unknown) (unknown) (no (unknown) (unknown) Labs: (units (unkno wn) date) unknown) (unknown) (no (unknown) (unknown) EVARISTO Zendejas, on (units (unknown) date) 01/11/2023 @ 9:30 unknown) am at [facility] [place].) (unknown) (no (unknown) (unknown) Medical History (units (unknown) date) (Updated 03/29/22 unknown) @ 14:14 by Urszula Urias RN) (unknown) (no (unknown) (unknown) Narrative: (units (unk nown) date) unknown) (unknown) (no (unknown) (unknown) Neuropathy (units (unk nown) date) unknown) (unknown) (no (unknown) (unknown) No Action (units (unkn own) date) unknown) (unknown) (no (unknown) (unknown) Elliot Salazar, (units (unknown) date) [Physician] - unknown) As previously scheduled (Follow up w/ Sil (unknown) (no (unknown) (unknown) Objective (units (unkn own) date) unknown) (unknown) (no (unknown) (unknown) Operative (units (unkn own) date) Date/Time/Diagnos unknown) es (unknown) (no (unknown) (unknown) Operative Notes (units (unknown) date) unknown) (unknown) (no (unknown) (unknown) Ordered By: (units (un known) date) Greta Spear unknown) (unknown) (no (unknown) (unknown) Osteoarthritis (units (unknown) date) unknown) (unknown) (no (unknown) (unknown) Oxygen Delivery (units (unknown) date) Method Room Air unknown) (unknown) (no (unknown) (unknown) Oxygen Flow Rate (units (unknown) date) 0 unknown) (unknown) (no (unknown) (unknown) PFSH (units (unkno wn) date) unknown) (unknown) (no (unknown) (unknown) Patient (units (unkno wn) date) Disposition: Home unknown) (unknown) (no (unknown) (unknown) Patient: (units (unkno wn) date) Mc Lauren MR#: unknown) [id number] (unknown) (no (unknown) (unknown) Physician (units (unkn own) date) Instructions: unknown) postop TKA protocol (unknown) (no (unknown) (unknown) Plan of (units (unkno wn) date) Treatment: unknown) (unknown) (no (unknown) (unknown) Post-op (units (unkno wn) date) diagnosis: same unknown) (unknown) (no (unknown) (unknown) Pre-op (units (unkno wn) date) diagnosis: Right unknown) knee osteoarthritis (unknown) (no (unknown) (unknown) Prescriptions: (units (unknown) date) unknown) (unknown) (no (unknown) (unknown) Primary Care (units (u nknown) date) Provider: unknown) Lina Priest (unknown) (no (unknown) (unknown) Primary care (units (u nknown) date) physician: unknown) (unknown) (no (unknown) (unknown) Procedure + (units (un known) date) Clinicians unknown) (unknown) (no (unknown) (unknown) Procedure: (units (unk nown) date) unknown) (unknown) (no (unknown) (unknown) Prosthetic (units (unk nown) date) devices, grafts, unknown) tissues, transplants, or devices: (unknown) (no (unknown) (unknown) Provider (units (unkno wn) date) unknown) (unknown) (no (unknown) (unknown) Provider: (units (unkn own) date) Greta Spear P.A-C unknown) (unknown) (no (unknown) (unknown) Pulse Oximetry (units (unknown) date) 94 unknown) (unknown) (no (unknown) (unknown) Pulse Rate 73 (units ( unknown) date) unknown) (unknown) (no (unknown) (unknown) Quality (units (unkno wn) date) unknown) (unknown) (no (unknown) (unknown) 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) unknown) (unknown) (no (unknown) (unknown) Report to your (units (unknown) date) healthcare unknown) provider any signs of infection, such as:: chills, (unknown) (no (unknown) (unknown) Respiratory Rate (units (unknown) date) 18 unknown) (unknown) (no (unknown) (unknown) Right knee (units (unk nown) date) osteoarthritis, unknown) s/p right total knee arthroplasty (unknown) (no (unknown) (unknown) Right total knee (units (unknown) date) replacement unknown) (unknown) (no (unknown) (unknown) Risks discussed (units (unknown) date) included, but unknown) were not limited to, failure to relieve pain, (unknown) (no (unknown) (unknown) 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) unknown) (unknown) (no (unknown) (unknown) S/P epidural (units (u nknown) date) steroid injection unknown) (unknown) (no (unknown) (unknown) SARS-CoV-2 (PCR) (units (unknown) date) Negative unknown) (unknown) (no (unknown) (unknown) Same procedure (units (unknown) date) as scheduled: Yes unknown) (unknown) (no (unknown) (unknown) Severe (units (unkno wn) date) osteoarthritis of unknown) the medial compartment with moderate patellofemoral (unknown) (no (unknown) (unknown) Signed By: (units (unk nown) date) unknown) (unknown) (no (unknown) (unknown) Skin/Wound/Dress (units (unknown) date) ing Care unknown) (unknown) (no (unknown) (unknown) Smoking Status: (units (unknown) date) Current some day unknown) smoker (unknown) (no (unknown) (unknown) Social History (units (unknown) date) unknown) (unknown) (no (unknown) (unknown) Specimen(s): (units (u nknown) date) none sent unknown) (unknown) (no (unknown) (unknown) Spinal stenosis (units (unknown) date) unknown) (unknown) (no (unknown) (unknown) Stand Alone (units (un known) date) Forms: Patient unknown) Portal/API, Surgery Discharge (unknown) (no (unknown) (unknown) Summary (units (unkno wn) date) unknown) (unknown) (no (unknown) (unknown) Surgeon: Elliot (units (unknown) date) Romy Salazar unknown) (unknown) (no (unknown) (unknown) Surgical History (units (unknown) date) (Updated 03/29/22 unknown) @ 14:00 by Urszula Urias RN) (unknown) (no (unknown) (unknown) Temperature 97.9 (units (unknown) date) F unknown) (unknown) (no (unknown) (unknown) The patient has (units (unknown) date) had progressively unknown) worsening right knee pain with radiographic (unknown) (no (unknown) (unknown) Time Patient (units (u nknown) date) Seen: 06:43 unknown) (unknown) (no (unknown) (unknown) Time of (units (unkno wn) date) procedure: 12:32 unknown) (unknown) (no (unknown) (unknown) Tourniquet time (units (unknown) date) (min): 53 unknown) (unknown) (no (unknown) (unknown) VTE (units (unkno wn) date) unknown) (unknown) (no (unknown) (unknown) Visit (units (unkno wn) date) Report/Discharge unknown) Packet (unknown) (no (unknown) (unknown) Vital Signs (units (un known) date) unknown) (unknown) (no (unknown) (unknown) [Embedded Image (units (unknown) date) Not Available] unknown) (unknown) (no (unknown) (unknown) alcohol intake: (units (unknown) date) current unknown) (unknown) (no (unknown) (unknown) alternatives to (units (unknown) date) surgery were unknown) discussed with the patient prior to proceeding. (unknown) (no (unknown) (unknown) changes (units (unkno wn) date) consistent with unknown) arthritis. Non-operative management has failed and the (unknown) (no (unknown) (unknown) changes. (units (unkno wn) date) unknown) (unknown) (no (unknown) (unknown) diazepam (units (unkno wn) date) [Valium] 10 mg unknown) Tablet (unknown) (no (unknown) (unknown) fever, night (units (u nknown) date) sweats, unusual unknown) drainage and unusual redness (unknown) (no (unknown) (unknown) gabapentin 600 (units (unknown) date) mg Tablet unknown) (unknown) (no (unknown) (unknown) household (units (unkn own) date) members: family unknown) and children (unknown) (no (unknown) (unknown) ibuprofen (units (unkn own) date) [Advil] 200 mg unknown) Tablet (unknown) (no (unknown) (unknown) in place until (units (unknown) date) follow up in unknown) office. No bathing or otherwise soaking incision. (unknown) (no (unknown) (unknown) patient has (units (un known) date) requested total unknown) knee replacement. The risks, benefits and (unknown) (no (unknown) (unknown) potential need (units (unknown) date) for eventual unknown) revision of the prosthetic. (unknown) (no (unknown) (unknown) prophylaxis, (units (u nknown) date) outpt PT, f/u in unknown) office in 2 weeks. (unknown) (no (unknown) (unknown) right cobalt (units (u nknown) date) chromium femur, 8 unknown) right non porous tibial base plate, 38 mm oval (unknown) (no (unknown) (unknown) stiffness, (units (unk nown) date) infection, nerve unknown) damage, deep venous thrombosis, pulmonary embolism, (unknown) (no (unknown) (unknown) stroke, coma, (units ( unknown) date) heart attack, unknown) permanent paralysis and , as well as the Result panel 9 (unknown) (no (unknown) (unknown) (no value) (units (unk nown) date) unknown) (unknown) (no (unknown) (unknown) (past 8 hours): (units (unknown) date) unknown) (unknown) (no (unknown) (unknown) 02:12 (units (unkno wn) date) unknown) (unknown) (no (unknown) (unknown) 12/26/22 (units (unkno wn) date) 12/27/22 unknown) (unknown) (no (unknown) (unknown) 12/26/22 13:18 (units (unknown) date) unknown) (unknown) (no (unknown) (unknown) 12/27/22 05:51 (units (unknown) date) unknown) (unknown) (no (unknown) (unknown) 12/27/22 (units (unkno wn) date) unknown) (unknown) (no (unknown) (unknown) 09:17 05:51 (units (un known) date) unknown) (unknown) (no (unknown) (unknown) 200 mg PO DAILY (units (unknown) date) PRN (Reason: unknown) Pain) (unknown) (no (unknown) (unknown) 3225 (units (unkno wn) date) unknown) (unknown) (no (unknown) (unknown) 5 mg PO DAILY (units ( unknown) date) PRN (Reason: unknown) Anxiety) (unknown) (no (unknown) (unknown) 5 mg PO Q4-6H (units ( unknown) date) PRN (Reason: unknown) Pain, Moderate (4-6)) Qty: 60 0RF (unknown) (no (unknown) (unknown) 600 mg PO (units (unkn own) date) BEDTIME unknown) (unknown) (no (unknown) (unknown) 650 mg PO Q6H (units ( unknown) date) PRN (Reason: unknown) fever or pain) Qty: 240 0RF (unknown) (no (unknown) (unknown) 81 mg PO BID (units (u nknown) date) Qty: 90 0RF unknown) (unknown) (no (unknown) (unknown) Activity: Walk (units (unknown) date) frequently! unknown) (unknown) (no (unknown) (unknown) Age/Sex: 82 / M (units (unknown) date) unknown) (unknown) (no (unknown) (unknown) Anesthesia Type: (units (unknown) date) Spinal, Sedation unknown) and Local (unknown) (no (unknown) (unknown) Lina Priest, (units (unknown) date) unknown) (unknown) (no (unknown) (unknown) Anxiety (units (unkno wn) date) unknown) (unknown) (no (unknown) (unknown) Applied: (units (unkno wn) date) implant(s) unknown) (unknown) (no (unknown) (unknown) Assessment and (units (unknown) date) Plan unknown) (unknown) (no (unknown) (unknown) Assessment: (units (un known) date) unknown) (unknown) (no (unknown) (unknown) Kitchen Food Server: Steve (units (unknown) date) Enrique Doe unknown) (unknown) (no (unknown) (unknown) Attending (units (unkn own) date) Provider: unknown) Elliot Salazar (unknown) (no (unknown) (unknown) 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 (unknown) (no (unknown) (unknown) Chief complaint: (units (unknown) date) OPB unknown) (unknown) (no (unknown) (unknown) Click Yes if (units (u nknown) date) Unassisted: No unknown) (unknown) (no (unknown) (unknown) Closure Type: (units ( unknown) date) primary unknown) (unknown) (no (unknown) (unknown) Cold/Heat (units (unkn own) date) Therapy: Ice to unknown) knee as needed for pain. (unknown) (no (unknown) (unknown) Comment: (units (unkno wn) date) unknown) (unknown) (no (unknown) (unknown) Consult to (units (unk nown) date) Discharge unknown) Planning Routine (unknown) (no (unknown) (unknown) Consult to (units (unk nown) date) Physical Therapy unknown) Evaluate + Treat (unknown) (no (unknown) (unknown) Consults: (units (unkn own) date) unknown) (unknown) (no (unknown) (unknown) Continued (units (unkn own) date) unknown) (unknown) (no (unknown) (unknown) Corporation and (units (unknown) date) included the BCS unknown) II Journey total knee replacement with a size 8 (unknown) (no (unknown) (unknown) : 1940 (units (unknown) date) Acct:[id number] unknown) (unknown) (no (unknown) (unknown) Lina Priest, (units (unknown) date) [Primary Care unknown) Provider] (unknown) (no (unknown) (unknown) Date Patient (units (u nknown) date) Seen: 12/27/22 unknown) (unknown) (no (unknown) (unknown) Date of Service: (units (unknown) date) 12/26/22 unknown) (unknown) (no (unknown) (unknown) Date of (units (unkno wn) date) procedure: unknown) 12/26/22 (unknown) (no (unknown) (unknown) Deep Vein (units (unkn own) date) Thrombosis/Pulmon unknown) bertha Embolism Present on Admission: No (unknown) (no (unknown) (unknown) Diet/Activity/Tr (units (unknown) date) eatments unknown) (unknown) (no (unknown) (unknown) Diet: Diet as (units ( unknown) date) Tolerated unknown) (unknown) (no (unknown) (unknown) Discharge (units (unkn own) date) (Order); Ordered unknown) 12/27/22 (unknown) (no (unknown) (unknown) Discharge (units (unkn own) date) Assessment + Plan unknown) (unknown) (no (unknown) (unknown) Discharge Data (units (unknown) date) unknown) (unknown) (no (unknown) (unknown) Discharge Date: (units (unknown) date) 12/27/22 unknown) (unknown) (no (unknown) (unknown) Discharge (units (unkn own) date) Diagnosis: unknown) (unknown) (no (unknown) (unknown) Discharge (units (unkn own) date) Orders: unknown) (unknown) (no (unknown) (unknown) Discharge Plan (units (unknown) date) unknown) (unknown) (no (unknown) (unknown) Discharge (units (unkn own) date) Providers unknown) (unknown) (no (unknown) (unknown) Discharge (units (unkn own) date) Summary unknown) (unknown) (no (unknown) (unknown) Discharge home, (units (unknown) date) multimodal pain unknown) control, ASA 81mg BID x 6 weeks for VTE (unknown) (no (unknown) (unknown) Discharge orders (units (unknown) date) + Medications unknown) (unknown) (no (unknown) (unknown) Discharge (units (unkn own) date) provider: unknown) (unknown) (no (unknown) (unknown) Diverticulitis (units (unknown) date) unknown) (unknown) (no (unknown) (unknown) Do not take in (units (unknown) date) combination with unknown) Valium. May take in combination w/ (unknown) (no (unknown) (unknown) Dressing: January (units ( unknown) date) remove MARGARITO wrap unknown) and shower on 12/29/2022. Leave Aquacel dressing (unknown) (no (unknown) (unknown) Estimated Blood (units (unknown) date) Loss (mL): 50 unknown) (unknown) (no (unknown) (unknown) Exam (units (unkno wn) date) unknown) (unknown) (no (unknown) (unknown) Findings: (units (unkn own) date) unknown) (unknown) (no (unknown) (unknown) Follow (units (unkno wn) date) up/Referrals: unknown) (unknown) (no (unknown) (unknown) Jeannine II (units (unk nown) date) patella, and a 9 unknown) mm cross-linked polyethylene tibial insert. (unknown) (no (unknown) (unknown) HLD (units (unkno wn) date) (hyperlipidemia) unknown) (unknown) (no (unknown) (unknown) HTN (units (unkno wn) date) (hypertension) unknown) (unknown) (no (unknown) (unknown) Hct 32.2 L (units (unk nown) date) unknown) (unknown) (no (unknown) (unknown) Hearing impaired (units (unknown) date) unknown) (unknown) (no (unknown) (unknown) Hgb 11.1 L (units (unk nown) date) unknown) (unknown) (no (unknown) (unknown) History of (units (unk nown) date) Present Illness unknown) (unknown) (no (unknown) (unknown) History of (units (unk nown) date) prostate surgery unknown) (unknown) (no (unknown) (unknown) History of (units (unk nown) date) stapedectomy unknown) (unknown) (no (unknown) (unknown) History of (units (unk nown) date) surgery unknown) (unknown) (no (unknown) (unknown) Hospital Course (units (unknown) date) unknown) (unknown) (no (unknown) (unknown) Hx of LASIK (units (un known) date) unknown) (unknown) (no (unknown) (unknown) Implants used in (units (unknown) date) this procedure unknown) were manufactured by the [employer] (unknown) (no (unknown) (unknown) Indications: (units (u nknown) date) unknown) (unknown) (no (unknown) (unknown) Instructions: DI (units (unknown) date) for Knee unknown) Replacement (unknown) (no (unknown) (unknown) [facility] (units (unknown) date) [address] unknown) [place] [address] (unknown) (no (unknown) (unknown) Greta Spear PA-C (units (unknown) date) unknown) (unknown) (no (unknown) (unknown) Kidney stones (units ( unknown) date) unknown) (unknown) (no (unknown) (unknown) Laboratory (units (unk nown) date) Results - last 24 unknown) hr (unknown) (no (unknown) (unknown) Labs (units (unkno wn) date) unknown) (unknown) (no (unknown) (unknown) Labs: (units (unkno wn) date) unknown) (unknown) (no (unknown) (unknown) EVARISTO Zendejas, on (units (unknown) date) 01/11/2023 @ 9:30 unknown) am at [facility] [address] office in [place].) (unknown) (no (unknown) (unknown) Medical History (units (unknown) date) (Updated 03/29/22 unknown) @ 14:14 by Urszula Urias RN) (unknown) (no (unknown) (unknown) Narrative: (units (unk nown) date) unknown) (unknown) (no (unknown) (unknown) Neuropathy (units (unk nown) date) unknown) (unknown) (no (unknown) (unknown) New (units (unkno wn) date) unknown) (unknown) (no (unknown) (unknown) Elliot Salazar, (units (unknown) date) [Physician] - unknown) As previously scheduled (Follow up w/ Sil (unknown) (no (unknown) (unknown) Objective (units (unkn own) date) unknown) (unknown) (no (unknown) (unknown) Operative (units (unkn own) date) Date/Time/Diagnos unknown) es (unknown) (no (unknown) (unknown) Operative Notes (units (unknown) date) unknown) (unknown) (no (unknown) (unknown) Ordered By: (units (un known) date) Greta Beh unknown) (unknown) (no (unknown) (unknown) Osteoarthritis (units (unknown) date) unknown) (unknown) (no (unknown) (unknown) Oxygen Delivery (units (unknown) date) Method Room Air unknown) (unknown) (no (unknown) (unknown) Oxygen Flow Rate (units (unknown) date) 0 unknown) (unknown) (no (unknown) (unknown) PFSH (units (unkno wn) date) unknown) (unknown) (no (unknown) (unknown) Patient (units (unkno wn) date) Disposition: Home unknown) (unknown) (no (unknown) (unknown) Patient: (units (unkno wn) date) Mc Lauren MR#: unknown) [id number] (unknown) (no (unknown) (unknown) Physician (units (unkn own) date) Instructions: unknown) postop TKA protocol (unknown) (no (unknown) (unknown) Plan of (units (unkno wn) date) Treatment: unknown) (unknown) (no (unknown) (unknown) Post-op (units (unkno wn) date) diagnosis: same unknown) (unknown) (no (unknown) (unknown) Pre-op (units (unkno wn) date) diagnosis: Right unknown) knee osteoarthritis (unknown) (no (unknown) (unknown) Prescriptions: (units (unknown) date) unknown) (unknown) (no (unknown) (unknown) Primary Care (units (u nknown) date) Provider: unknown) Lina Priest (unknown) (no (unknown) (unknown) Primary care (units (u nknown) date) physician: unknown) (unknown) (no (unknown) (unknown) Procedure + (units (un known) date) Clinicians unknown) (unknown) (no (unknown) (unknown) Procedure: (units (unk nown) date) unknown) (unknown) (no (unknown) (unknown) Prosthetic (units (unk nown) date) devices, grafts, unknown) tissues, transplants, or devices: (unknown) (no (unknown) (unknown) Provider (units (unkno wn) date) unknown) (unknown) (no (unknown) (unknown) Provider: (units (unkn own) date) Greta Spear P.A-C unknown) (unknown) (no (unknown) (unknown) Pulse Oximetry (units (unknown) date) 94 unknown) (unknown) (no (unknown) (unknown) Pulse Rate 73 (units ( unknown) date) unknown) (unknown) (no (unknown) (unknown) Quality (units (unkno wn) date) unknown) (unknown) (no (unknown) (unknown) 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) unknown) (unknown) (no (unknown) (unknown) Report to your (units (unknown) date) healthcare unknown) provider any signs of infection, such as:: chills, (unknown) (no (unknown) (unknown) Respiratory Rate (units (unknown) date) 18 unknown) (unknown) (no (unknown) (unknown) Right knee (units (unk nown) date) osteoarthritis, unknown) s/p right total knee arthroplasty (unknown) (no (unknown) (unknown) Right total knee (units (unknown) date) replacement unknown) (unknown) (no (unknown) (unknown) Risks discussed (units (unknown) date) included, but unknown) were not limited to, failure to relieve pain, (unknown) (no (unknown) (unknown) Rx Instructions: (units (unknown) date) unknown) (unknown) (no (unknown) (unknown) 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) unknown) (unknown) (no (unknown) (unknown) S/P epidural (units (u nknown) date) steroid injection unknown) (unknown) (no (unknown) (unknown) SARS-CoV-2 (PCR) (units (unknown) date) Negative unknown) (unknown) (no (unknown) (unknown) Same procedure (units (unknown) date) as scheduled: Yes unknown) (unknown) (no (unknown) (unknown) Severe (units (unkno wn) date) osteoarthritis of unknown) the medial compartment with moderate patellofemoral (unknown) (no (unknown) (unknown) Signed By: (units (unk nown) date) unknown) (unknown) (no (unknown) (unknown) Skin/Wound/Dress (units (unknown) date) ing Care unknown) (unknown) (no (unknown) (unknown) Smoking Status: (units (unknown) date) Current some day unknown) smoker (unknown) (no (unknown) (unknown) Social History (units (unknown) date) unknown) (unknown) (no (unknown) (unknown) Specimen(s): (units (u nknown) date) none sent unknown) (unknown) (no (unknown) (unknown) Spinal stenosis (units (unknown) date) unknown) (unknown) (no (unknown) (unknown) Stand Alone (units (un known) date) Forms: Patient unknown) Portal/API, Surgery Discharge (unknown) (no (unknown) (unknown) Summary (units (unkno wn) date) unknown) (unknown) (no (unknown) (unknown) Surgeon: Elliot (units (unknown) date) Romy Salazar unknown) (unknown) (no (unknown) (unknown) Surgical History (units (unknown) date) (Updated 03/29/22 unknown) @ 14:00 by Urszula Urias RN) (unknown) (no (unknown) (unknown) Temperature 97.9 (units (unknown) date) F unknown) (unknown) (no (unknown) (unknown) The patient has (units (unknown) date) had progressively unknown) worsening right knee pain with radiographic (unknown) (no (unknown) (unknown) Time Patient (units (u nknown) date) Seen: 06:43 unknown) (unknown) (no (unknown) (unknown) Time of (units (unkno wn) date) procedure: 12:32 unknown) (unknown) (no (unknown) (unknown) Tourniquet time (units (unknown) date) (min): 53 unknown) (unknown) (no (unknown) (unknown) VTE (units (unkno wn) date) unknown) (unknown) (no (unknown) (unknown) Visit (units (unkno wn) date) Report/Discharge unknown) Packet (unknown) (no (unknown) (unknown) Vital Signs (units (un known) date) unknown) (unknown) (no (unknown) (unknown) [Embedded Image (units (unknown) date) Not Available] unknown) (unknown) (no (unknown) (unknown) acetaminophen (units ( unknown) date) 325 mg Tablet unknown) (unknown) (no (unknown) (unknown) alcohol intake: (units (unknown) date) current unknown) (unknown) (no (unknown) (unknown) alternatives to (units (unknown) date) surgery were unknown) discussed with the patient prior to proceeding. (unknown) (no (unknown) (unknown) aspirin 81 mg (units ( unknown) date) Tablet,Delayed unknown) Release (Dr/Ec) (unknown) (no (unknown) (unknown) changes (units (unkno wn) date) consistent with unknown) arthritis. Non-operative management has failed and the (unknown) (no (unknown) (unknown) changes. (units (unkno wn) date) unknown) (unknown) (no (unknown) (unknown) diazepam (units (unkno wn) date) [Valium] 10 mg unknown) Tablet (unknown) (no (unknown) (unknown) fever, night (units (u nknown) date) sweats, unusual unknown) drainage and unusual redness (unknown) (no (unknown) (unknown) gabapentin 600 (units (unknown) date) mg Tablet unknown) (unknown) (no (unknown) (unknown) gabapentin. (units (un known) date) unknown) (unknown) (no (unknown) (unknown) household (units (unkn own) date) members: family unknown) and children (unknown) (no (unknown) (unknown) ibuprofen (units (unkn own) date) [Advil] 200 mg unknown) Tablet (unknown) (no (unknown) (unknown) in place until (units (unknown) date) follow up in unknown) office. No bathing or otherwise soaking incision. (unknown) (no (unknown) (unknown) oxycodone 5 mg (units (unknown) date) Tablet unknown) (unknown) (no (unknown) (unknown) patient has (units (un known) date) requested total unknown) knee replacement. The risks, benefits and (unknown) (no (unknown) (unknown) potential need (units (unknown) date) for eventual unknown) revision of the prosthetic. (unknown) (no (unknown) (unknown) prophylaxis, (units (u nknown) date) outpt PT, f/u in unknown) office in 2 weeks. (unknown) (no (unknown) (unknown) right cobalt (units (u nknown) date) chromium femur, 8 unknown) right non porous tibial base plate, 38 mm oval (unknown) (no (unknown) (unknown) stiffness, (units (unk nown) date) infection, nerve unknown) damage, deep venous thrombosis, pulmonary embolism, (unknown) (no (unknown) (unknown) stroke, coma, (units ( unknown) date) heart attack, unknown) permanent paralysis and , as well as the Result panel 10 (unknown) (no (unknown) (unknown) (no value) (units (unk nown) date) unknown) (unknown) (no (unknown) (unknown) (past 8 hours): (units (unknown) date) unknown) (unknown) (no (unknown) (unknown) 02:12 (units (unkno wn) date) unknown) (unknown) (no (unknown) (unknown) 12/26/22 (units (unkno wn) date) 12/27/22 unknown) (unknown) (no (unknown) (unknown) 12/26/22 13:18 (units (unknown) date) unknown) (unknown) (no (unknown) (unknown) 12/27/22 05:51 (units (unknown) date) unknown) (unknown) (no (unknown) (unknown) 12/27/22 0736 (units ( unknown) date) unknown) (unknown) (no (unknown) (unknown) 12/27/22 (units (unkno wn) date) unknown) (unknown) (no (unknown) (unknown) 09:17 05:51 (units (un known) date) unknown) (unknown) (no (unknown) (unknown) 200 mg PO DAILY (units (unknown) date) PRN (Reason: unknown) Pain) (unknown) (no (unknown) (unknown) 3225 (units (unkno wn) date) unknown) (unknown) (no (unknown) (unknown) 5 mg PO DAILY (units ( unknown) date) PRN (Reason: unknown) Anxiety) (unknown) (no (unknown) (unknown) 5 mg PO Q4-6H (units ( unknown) date) PRN (Reason: unknown) Pain, Moderate (4-6)) Qty: 60 0RF (unknown) (no (unknown) (unknown) 5/5 strength in (units (unknown) date) hip flexors, unknown) quadriceps, hamstrings, DF, PF, EHL on right. (unknown) (no (unknown) (unknown) 600 mg PO (units (unkn own) date) BEDTIME unknown) (unknown) (no (unknown) (unknown) 650 mg PO Q6H (units ( unknown) date) PRN (Reason: unknown) fever or pain) Qty: 240 0RF (unknown) (no (unknown) (unknown) 81 mg PO BID (units (u nknown) date) Qty: 90 0RF unknown) (unknown) (no (unknown) (unknown) Activity: Walk (units (unknown) date) frequently! unknown) (unknown) (no (unknown) (unknown) Age/Sex: 82 / M (units (unknown) date) unknown) (unknown) (no (unknown) (unknown) Anesthesia Type: (units (unknown) date) Spinal, Sedation unknown) and Local (unknown) (no (unknown) (unknown) Lina Priest, (units (unknown) date) MD unknown) (unknown) (no (unknown) (unknown) Anxiety (units (unkno wn) date) unknown) (unknown) (no (unknown) (unknown) Applied: (units (unkno wn) date) implant(s) unknown) (unknown) (no (unknown) (unknown) Assessment and (units (unknown) date) Plan unknown) (unknown) (no (unknown) (unknown) Assessment: (units (un known) date) unknown) (unknown) (no (unknown) (unknown) Kitchen Food Server: Steve (units (unknown) date) Enrique Doe unknown) (unknown) (no (unknown) (unknown) Attending (units (unkn own) date) Provider: unknown) Elliot Salazar (unknown) (no (unknown) (unknown) 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 (unknown) (no (unknown) (unknown) Chief complaint: (units (unknown) date) OPB unknown) (unknown) (no (unknown) (unknown) Click Yes if (units (u nknown) date) Unassisted: No unknown) (unknown) (no (unknown) (unknown) Closure Type: (units ( unknown) date) primary unknown) (unknown) (no (unknown) (unknown) Cold/Heat (units (unkn own) date) Therapy: Ice to unknown) knee as needed for pain. (unknown) (no (unknown) (unknown) Comment: (units (unkno wn) date) unknown) (unknown) (no (unknown) (unknown) Consult to (units (unk nown) date) Discharge unknown) Planning Routine (unknown) (no (unknown) (unknown) Consult to (units (unk nown) date) Physical Therapy unknown) Evaluate + Treat (unknown) (no (unknown) (unknown) Consults: (units (unkn own) date) unknown) (unknown) (no (unknown) (unknown) Continued (units (unkn own) date) unknown) (unknown) (no (unknown) (unknown) Corporation and (units (unknown) date) included the BCS unknown) II Journey total knee replacement with a size 8 (unknown) (no (unknown) (unknown) : 1940 (units (unknown) date) Acct:[id number] unknown) (unknown) (no (unknown) (unknown) Lina Priest, (units (unknown) date) MD [Primary Care unknown) Provider] (unknown) (no (unknown) (unknown) Date Patient (units (u nknown) date) Seen: 12/27/22 unknown) (unknown) (no (unknown) (unknown) Date of Service: (units (unknown) date) 12/26/22 unknown) (unknown) (no (unknown) (unknown) Date of (units (unkno wn) date) procedure: unknown) 12/26/22 (unknown) (no (unknown) (unknown) Deep Vein (units (unkn own) date) Thrombosis/Pulmon unknown) bertha Embolism Present on Admission: No (unknown) (no (unknown) (unknown) Diet/Activity/Tr (units (unknown) date) eatments unknown) (unknown) (no (unknown) (unknown) Diet: Diet as (units ( unknown) date) Tolerated unknown) (unknown) (no (unknown) (unknown) Discharge (units (unkn own) date) (Order); Ordered unknown) 12/27/22 (unknown) (no (unknown) (unknown) Discharge (units (unkn own) date) Assessment + Plan unknown) (unknown) (no (unknown) (unknown) Discharge Data (units (unknown) date) unknown) (unknown) (no (unknown) (unknown) Discharge Date: (units (unknown) date) 12/27/22 unknown) (unknown) (no (unknown) (unknown) Discharge (units (unkn own) date) Diagnosis: unknown) (unknown) (no (unknown) (unknown) Discharge (units (unkn own) date) Orders: unknown) (unknown) (no (unknown) (unknown) Discharge Plan (units (unknown) date) unknown) (unknown) (no (unknown) (unknown) Discharge (units (unkn own) date) Providers unknown) (unknown) (no (unknown) (unknown) Discharge (units (unkn own) date) Summary unknown) (unknown) (no (unknown) (unknown) Discharge home, (units (unknown) date) multimodal pain unknown) control, ASA 81mg BID x 6 weeks for VTE (unknown) (no (unknown) (unknown) Discharge orders (units (unknown) date) + Medications unknown) (unknown) (no (unknown) (unknown) Discharge (units (unkn own) date) provider: unknown) (unknown) (no (unknown) (unknown) Diverticulitis (units (unknown) date) unknown) (unknown) (no (unknown) (unknown) Do not take in (units (unknown) date) combination with unknown) Valium. May take in combination w/ (unknown) (no (unknown) (unknown) Dressing: January (units ( unknown) date) remove MARGARITO wrap unknown) and shower on 12/29/2022. Leave Aquacel dressing (unknown) (no (unknown) (unknown) Estimated Blood (units (unknown) date) Loss (mL): 50 unknown) (unknown) (no (unknown) (unknown) Exam Narrative: (units (unknown) date) unknown) (unknown) (no (unknown) (unknown) Exam (units (unkno wn) date) unknown) (unknown) (no (unknown) (unknown) Findings: (units (unkn own) date) unknown) (unknown) (no (unknown) (unknown) Follow (units (unkno wn) date) up/Referrals: unknown) (unknown) (no (unknown) (unknown) Jeannine II (units (unk nown) date) patella, and a 9 unknown) mm cross-linked polyethylene tibial insert. (unknown) (no (unknown) (unknown) HLD (units (unkno wn) date) (hyperlipidemia) unknown) (unknown) (no (unknown) (unknown) HTN (units (unkno wn) date) (hypertension) unknown) (unknown) (no (unknown) (unknown) Hct 32.2 L (units (unk nown) date) unknown) (unknown) (no (unknown) (unknown) Hearing impaired (units (unknown) date) unknown) (unknown) (no (unknown) (unknown) Hgb 11.1 L (units (unk nown) date) unknown) (unknown) (no (unknown) (unknown) History of (units (unk nown) date) Present Illness unknown) (unknown) (no (unknown) (unknown) History of (units (unk nown) date) prostate surgery unknown) (unknown) (no (unknown) (unknown) History of (units (unk nown) date) stapedectomy unknown) (unknown) (no (unknown) (unknown) History of (units (unk nown) date) surgery unknown) (unknown) (no (unknown) (unknown) Hospital Course (units (unknown) date) unknown) (unknown) (no (unknown) (unknown) Hospital Course: (units (unknown) date) unknown) (unknown) (no (unknown) (unknown) Hx of LASIK (units (un known) date) unknown) (unknown) (no (unknown) (unknown) Implants used in (units (unknown) date) this procedure unknown) were manufactured by the [employer] (unknown) (no (unknown) (unknown) Indications: (units (u nknown) date) unknown) (unknown) (no (unknown) (unknown) Instructions: DI (units (unknown) date) for Knee unknown) Replacement (unknown) (no (unknown) (unknown) [facility] (units (unknown) date) [address] [place] [address] unknown) [place] [address] (unknown) (no (unknown) (unknown) Greta Spear PA-C (units (unknown) date) unknown) (unknown) (no (unknown) (unknown) Kidney stones (units ( unknown) date) unknown) (unknown) (no (unknown) (unknown) Laboratory (units (unk nown) date) Results - last 24 unknown) hr (unknown) (no (unknown) (unknown) Labs (units (unkno wn) date) unknown) (unknown) (no (unknown) (unknown) Labs: (units (unkno wn) date) unknown) (unknown) (no (unknown) (unknown) EVARISTO Zendejas, on (units (unknown) date) 01/11/2023 @ 9:30 unknown) am at [facility] in [place].) (unknown) (no (unknown) (unknown) Medical History (units (unknown) date) (Updated 03/29/22 unknown) @ 14:14 by Urszula Urias RN) (unknown) (no (unknown) (unknown) Mr Lauren's (units (u nknown) date) hospital course unknown) was unremarkable. On POD# 1, he was feeling well (unknown) (no (unknown) (unknown) Narrative (units (unkn own) date) unknown) (unknown) (no (unknown) (unknown) Narrative: (units (unk nown) date) unknown) (unknown) (no (unknown) (unknown) Neuropathy (units (unk nown) date) unknown) (unknown) (no (unknown) (unknown) New (units (unkno wn) date) unknown) (unknown) (no (unknown) (unknown) Elliot Salazar, (units (unknown) date) [Physician] - unknown) As previously scheduled (Follow up w/ Sil (unknown) (no (unknown) (unknown) Objective (units (unkn own) date) unknown) (unknown) (no (unknown) (unknown) Operative (units (unkn own) date) Date/Time/Diagnos unknown) es (unknown) (no (unknown) (unknown) Operative Notes (units (unknown) date) unknown) (unknown) (no (unknown) (unknown) Ordered By: (units (un known) date) Greta Beh unknown) (unknown) (no (unknown) (unknown) Osteoarthritis (units (unknown) date) unknown) (unknown) (no (unknown) (unknown) Oxygen Delivery (units (unknown) date) Method Room Air unknown) (unknown) (no (unknown) (unknown) Oxygen Flow Rate (units (unknown) date) 0 unknown) (unknown) (no (unknown) (unknown) PFSH (units (unkno wn) date) unknown) (unknown) (no (unknown) (unknown) Patient (units (unkno wn) date) Disposition: Home unknown) (unknown) (no (unknown) (unknown) Patient: (units (unkno wn) date) XinMc MR#: unknown) [id number] (unknown) (no (unknown) (unknown) Physician (units (unkn own) date) Instructions: unknown) postop TKA protocol (unknown) (no (unknown) (unknown) Plan of (units (unkno wn) date) Treatment: unknown) (unknown) (no (unknown) (unknown) Post-op (units (unkno wn) date) diagnosis: same unknown) (unknown) (no (unknown) (unknown) Pre-op (units (unkno wn) date) diagnosis: Right unknown) knee osteoarthritis (unknown) (no (unknown) (unknown) Prescriptions: (units (unknown) date) unknown) (unknown) (no (unknown) (unknown) Primary Care (units (u nknown) date) Provider: unknown) Lina Priest (unknown) (no (unknown) (unknown) Primary care (units (u nknown) date) physician: unknown) (unknown) (no (unknown) (unknown) Procedure + (units (un known) date) Clinicians unknown) (unknown) (no (unknown) (unknown) Procedure: (units (unk nown) date) unknown) (unknown) (no (unknown) (unknown) Prosthetic (units (unk nown) date) devices, grafts, unknown) tissues, transplants, or devices: (unknown) (no (unknown) (unknown) Provider (units (unkno wn) date) unknown) (unknown) (no (unknown) (unknown) Provider: (units (unkn own) date) Greta Spear P.A-C unknown) (unknown) (no (unknown) (unknown) Pulse Oximetry (units (unknown) date) 94 unknown) (unknown) (no (unknown) (unknown) Pulse Rate 73 (units ( unknown) date) unknown) (unknown) (no (unknown) (unknown) Quality (units (unkno wn) date) unknown) (unknown) (no (unknown) (unknown) 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) unknown) (unknown) (no (unknown) (unknown) Report to your (units (unknown) date) healthcare unknown) provider any signs of infection, such as:: chills, (unknown) (no (unknown) (unknown) Respiratory Rate (units (unknown) date) 18 unknown) (unknown) (no (unknown) (unknown) Right knee (units (unk nown) date) osteoarthritis, unknown) s/p right total knee arthroplasty (unknown) (no (unknown) (unknown) Right total knee (units (unknown) date) replacement unknown) (unknown) (no (unknown) (unknown) Risks discussed (units (unknown) date) included, but unknown) were not limited to, failure to relieve pain, (unknown) (no (unknown) (unknown) Rx Instructions: (units (unknown) date) unknown) (unknown) (no (unknown) (unknown) 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 Calves soft, compressible, nontender (unknown) (no (unknown) (unknown) Severe (units (unkno wn) date) osteoarthritis of unknown) the medial compartment with moderate patellofemoral (unknown) (no (unknown) (unknown) Signed (units (unkno wn) date) By:<Electronicall unknown) y signed by Greta Spear> (unknown) (no (unknown) (unknown) Skin/Wound/Dress (units (unknown) date) ing Care unknown) (unknown) (no (unknown) (unknown) Smoking Status: (units (unknown) date) Current some day unknown) smoker (unknown) (no (unknown) (unknown) Social History (units (unknown) date) unknown) (unknown) (no (unknown) (unknown) Specimen(s): (units (u nknown) date) none sent unknown) (unknown) (no (unknown) (unknown) Spinal stenosis (units (unknown) date) unknown) (unknown) (no (unknown) (unknown) Stand Alone (units (un known) date) Forms: Patient unknown) Portal/API, Surgery Discharge (unknown) (no (unknown) (unknown) Summary (units (unkno wn) date) unknown) (unknown) (no (unknown) (unknown) Surgeon: Elliot (units (unknown) date) Romy Salazar unknown) (unknown) (no (unknown) (unknown) Surgical History (units (unknown) date) (Updated 03/29/22 unknown) @ 14:00 by Urszula Urias RN) (unknown) (no (unknown) (unknown) Temperature 97.9 (units (unknown) date) F unknown) (unknown) (no (unknown) (unknown) The patient has (units (unknown) date) had progressively unknown) worsening right knee pain with radiographic (unknown) (no (unknown) (unknown) Time Patient (units (u nknown) date) Seen: 06:43 unknown) (unknown) (no (unknown) (unknown) Time of (units (unkno wn) date) procedure: 12:32 unknown) (unknown) (no (unknown) (unknown) [place]niquet time (units (unknown) date) (min): 53 unknown) (unknown) (no (unknown) (unknown) VTE (units (unkno wn) date) unknown) (unknown) (no (unknown) (unknown) Visit (units (unkno wn) date) Report/Discharge unknown) Packet (unknown) (no (unknown) (unknown) Vital Signs (units (un known) date) unknown) (unknown) (no (unknown) (unknown) [Embedded Image (units (unknown) date) Not Available] unknown) (unknown) (no (unknown) (unknown) acetaminophen (units ( unknown) date) 325 mg Tablet unknown) (unknown) (no (unknown) (unknown) alcohol intake: (units (unknown) date) current unknown) (unknown) (no (unknown) (unknown) alternatives to (units (unknown) date) surgery were unknown) discussed with the patient prior to proceeding. (unknown) (no (unknown) (unknown) and wanted to go (units (unknown) date) home. He was unknown) eating and voiding without difficulty and his (unknown) (no (unknown) (unknown) and without (units (un known) date) palpable cords or unknown) masses. (unknown) (no (unknown) (unknown) aspirin 81 mg (units ( unknown) date) Tablet,Delayed unknown) Release (Dr/Ec) (unknown) (no (unknown) (unknown) changes (units (unkno wn) date) consistent with unknown) arthritis. Non-operative management has failed and the (unknown) (no (unknown) (unknown) changes. (units (unkno wn) date) unknown) (unknown) (no (unknown) (unknown) diazepam (units (unkno wn) date) [Valium] 10 mg unknown) Tablet (unknown) (no (unknown) (unknown) felt he was safe (units (unknown) date) to go home with unknown) standby assistance. (unknown) (no (unknown) (unknown) fever, night (units (u nknown) date) sweats, unusual unknown) drainage and unusual redness (unknown) (no (unknown) (unknown) gabapentin 600 (units (unknown) date) mg Tablet unknown) (unknown) (no (unknown) (unknown) gabapentin. (units (un known) date) unknown) (unknown) (no (unknown) (unknown) household (units (unkn own) date) members: family unknown) and children (unknown) (no (unknown) (unknown) ibuprofen (units (unkn own) date) [Advil] 200 mg unknown) Tablet (unknown) (no (unknown) (unknown) in place until (units (unknown) date) follow up in unknown) office. No bathing or otherwise soaking incision. (unknown) (no (unknown) (unknown) oxycodone 5 mg (units (unknown) date) Tablet unknown) (unknown) (no (unknown) (unknown) pain was (units (unkno wn) date) well-controlled unknown) with oral medication. He was evaluated by PT and they (unknown) (no (unknown) (unknown) patient has (units (un known) date) requested total unknown) knee replacement. The risks, benefits and (unknown) (no (unknown) (unknown) potential need (units (unknown) date) for eventual unknown) revision of the prosthetic. (unknown) (no (unknown) (unknown) prophylaxis, (units (u nknown) date) outpt PT, f/u in unknown) office in 2 weeks. (unknown) (no (unknown) (unknown) right cobalt (units (u nknown) date) chromium femur, 8 unknown) right non porous tibial base plate, 38 mm oval (unknown) (no (unknown) (unknown) stiffness, (units (unk nown) date) infection, nerve unknown) damage, deep venous thrombosis, pulmonary embolism, (unknown) (no (unknown) (unknown) stroke, coma, (units ( unknown) date) heart attack, unknown) permanent paralysis and , as well as the Result panel 11 (unknown) (no (unknown) (unknown) (no value) (units (unk nown) date) unknown) (unknown) (no (unknown) (unknown) (past 8 hours): (units (unknown) date) unknown) (unknown) (no (unknown) (unknown) 12/27/22 05:51 (units (unknown) date) unknown) (unknown) (no (unknown) (unknown) 12/28/22 0855 (units ( unknown) date) unknown) (unknown) (no (unknown) (unknown) 12/28/22 (units (unkno wn) date) unknown) (unknown) (no (unknown) (unknown) 08:00 (units (unkno wn) date) unknown) (unknown) (no (unknown) (unknown) [id number] (units (unkno wn) date) unknown) (unknown) (no (unknown) (unknown) Actual Procedure (units (unknown) date) Side Surgeon unknown) (unknown) (no (unknown) (unknown) Age/Sex: 82 / M (units (unknown) date) unknown) (unknown) (no (unknown) (unknown) Anxiety (units (unkno wn) date) unknown) (unknown) (no (unknown) (unknown) Aquacel dressing (units (unknown) date) completely unknown) saturated with blood. 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) unknown) (-2001) (unknown) (no (unknown) (unknown) Barretts (units (unkno wn) date) esophagus unknown) (unknown) (no (unknown) (unknown) Blood Pressure (units (unknown) date) 135/69 unknown) (unknown) (no (unknown) (unknown) : 1940 (units (unknown) date) Acct:[id number] unknown) (unknown) (no (unknown) (unknown) Date of Service: (units (unknown) date) 12/27/22 unknown) (unknown) (no (unknown) (unknown) Deep Vein (units (unkn own) date) Thrombosis/Pulmon unknown) bertha Embolism Present on Admission: No (unknown) (no (unknown) (unknown) Diverticulitis (units (unknown) date) unknown) (unknown) (no (unknown) (unknown) Exam Narrative: (units (unknown) date) unknown) (unknown) (no (unknown) (unknown) Exam (units (unkno wn) date) unknown) (unknown) (no (unknown) (unknown) HLD (units (unkno wn) date) (hyperlipidemia) unknown) (unknown) (no (unknown) (unknown) HTN (units (unkno wn) date) (hypertension) unknown) (unknown) (no (unknown) (unknown) Hearing impaired (units (unknown) date) unknown) (unknown) (no (unknown) (unknown) History of (units (unk nown) date) prostate surgery unknown) (unknown) (no (unknown) (unknown) History of (units (unk nown) date) stapedectomy unknown) (unknown) (no (unknown) (unknown) History of (units (unk nown) date) surgery unknown) (unknown) (no (unknown) (unknown) Hx of LASIK (units (un known) date) unknown) (unknown) (no (unknown) (unknown) Interval (units (unkno wn) date) history: unknown) (unknown) (no (unknown) (unknown) [facility] (units (unknown) date) [address] unknown) [place] [address] (unknown) (no (unknown) (unknown) Kidney stones (units ( unknown) date) unknown) (unknown) (no (unknown) (unknown) Labs (units (unkno wn) date) unknown) (unknown) (no (unknown) (unknown) Medical History (units (unknown) date) (Reviewed unknown) 12/28/22 @ 08:49 by Ev Zendejas PA-C) (unknown) (no (unknown) (unknown) Narrative (units (unkn own) date) unknown) (unknown) (no (unknown) (unknown) Neuropathy (units (unk nown) date) unknown) (unknown) (no (unknown) (unknown) Objective (units (unkn own) date) unknown) (unknown) (no (unknown) (unknown) Operation Date: (units (unknown) date) 12/26/22 11:00 unknown) (unknown) (no (unknown) (unknown) Osteoarthritis (units (unknown) date) unknown) (unknown) (no (unknown) (unknown) Oxygen Delivery (units (unknown) date) Method Room Air unknown) (unknown) (no (unknown) (unknown) Oxygen Flow Rate (units (unknown) date) 0 unknown) (unknown) (no (unknown) (unknown) PFSH (units (unkno wn) date) unknown) (unknown) (no (unknown) (unknown) Patient is awake (units (unknown) date) lying in bed this unknown) morning complaining of pain and continued (unknown) (no (unknown) (unknown) Patient: (units (unkno wn) date) Mc Lauren unknown) MR#: [id number] (unknown) (no (unknown) (unknown) Physical therapy (units (unknown) date) he may discharge unknown) to home today with his son. (unknown) (no (unknown) (unknown) Pleasant (units (unkno wn) date) 82-year-old male. unknown) Awake, alert, and oriented. Hard of hearing. (unknown) (no (unknown) (unknown) Postoperative (units ( unknown) date) day: 2 unknown) (unknown) (no (unknown) (unknown) Postoperative (units (u nknown) date) plan narrative: unknown) Plan to reassess wound and bandage today to ensure (unknown) (no (unknown) (unknown) Postoperative (units ( unknown) date) plan: routine unknown) post-op care (unknown) (no (unknown) (unknown) Postoperative (units ( unknown) date) status narrative: unknown) Patient is doing well, postop day 2 following (unknown) (no (unknown) (unknown) Postoperative (units ( unknown) date) status: doing unknown) well (unknown) (no (unknown) (unknown) Postoperative (units ( unknown) date) unknown) (unknown) (no (unknown) (unknown) Procedures (units (unk nown) date) unknown) (unknown) (no (unknown) (unknown) Procedures: (units (un known) date) unknown) (unknown) (no (unknown) (unknown) Progress Note (units ( unknown) date) unknown) (unknown) (no (unknown) (unknown) Provider: (units (unkn own) date) Ev Zendejas unknown) P.AEpifanio (unknown) (no (unknown) (unknown) Pulse Oximetry (units (unknown) date) 91 unknown) (unknown) (no (unknown) (unknown) Pulse Rate 79 (units ( unknown) date) unknown) (unknown) (no (unknown) (unknown) Quality (units (unkno wn) date) unknown) (unknown) (no (unknown) (unknown) 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) unknown) (unknown) (no (unknown) (unknown) Respiratory Rate (units (unknown) date) 17 unknown) (unknown) (no (unknown) (unknown) S/P CABG x 4 (units (u nknown) date) (-2012) unknown) (unknown) (no (unknown) (unknown) S/P epidural (units (u nknown) date) steroid injection unknown) (unknown) (no (unknown) (unknown) Signed (units (unkno wn) date) By:<Electronicall unknown) y signed by Ev Zendejas> (unknown) (no (unknown) (unknown) Smoking Status: (units (unknown) date) Current some day unknown) smoker (unknown) (no (unknown) (unknown) Social History (units (unknown) date) (Reviewed unknown) 12/28/22 @ 08:49 by Ev Zendejas PA-C) (unknown) (no (unknown) (unknown) Spinal stenosis (units (unknown) date) unknown) (unknown) (no (unknown) (unknown) Fordyce placed (units (unknown) date) today to unknown) reinforce central to distal wound and new dressing (unknown) (no (unknown) (unknown) Subjective (units (unk nown) date) unknown) (unknown) (no (unknown) (unknown) Surgical History (units (unknown) date) (Reviewed unknown) 12/28/22 @ 08:49 by Ev Zendejas PA-C) (unknown) (no (unknown) (unknown) Temperature 97.7 (units (unknown) date) F unknown) (unknown) (no (unknown) (unknown) VTE (units (unkno wn) date) unknown) (unknown) (no (unknown) (unknown) Vital Signs (units (un known) date) unknown) (unknown) (no (unknown) (unknown) [Embedded Image (units (unknown) date) Not Available] unknown) (unknown) (no (unknown) (unknown) alcohol intake: (units (unknown) date) current unknown) (unknown) (no (unknown) (unknown) and continued (units ( unknown) date) bleeding from the unknown) incision site with multiple dressing changes. (unknown) (no (unknown) (unknown) been harder for (units (unknown) date) him to walk to unknown) the bathroom today than previous days. He also (unknown) (no (unknown) (unknown) bilateral lower (units (unknown) date) extremities. unknown) Numbness to distal lower extremities due to (unknown) (no (unknown) (unknown) bleeding from (units ( unknown) date) his knee wound. unknown) States that his Aquacel was changed yesterday on (unknown) (no (unknown) (unknown) bowel movement (units (unknown) date) once per day. unknown) Denies chest pain, shortness of breath, abdominal (unknown) (no (unknown) (unknown) control of (units (unk nown) date) bleeding. If unknown) bleeding has stabilized inpatient is cleared by (unknown) (no (unknown) (unknown) distally (units (unkno wn) date) fluctuates unknown) day-to-day. He is looking forward to going home today if (unknown) (no (unknown) (unknown) dressing placed (units (unknown) date) and he was unknown) rewrapped with Margarito bandage. Strength intact to (unknown) (no (unknown) (unknown) has not had a (units ( unknown) date) bowel movement unknown) since surgery (2 days). He is currently taking (unknown) (no (unknown) (unknown) household (units (unkn own) date) members: family unknown) and children (unknown) (no (unknown) (unknown) longstanding (units (u nknown) date) neuropathy. unknown) Bilateral calves soft, compressible, nontender with no (unknown) (no (unknown) (unknown) notes that he (units ( unknown) date) had some low unknown) blood pressures yesterday but these have improved (unknown) (no (unknown) (unknown) p Total Knee (units (u nknown) date) Arthroplasty unknown) Right Elliot Salazar MD (unknown) (no (unknown) (unknown) pain. Patient (units ( unknown) date) has longstanding unknown) neuropathy and states that his sensation (unknown) (no (unknown) (unknown) palpable cords (units (unknown) date) or masses. unknown) Abdomen is soft and nontender in all 4 quadrants. (unknown) (no (unknown) (unknown) placed to (units (unkn own) date) reinforce the unknown) central to distal portion of the wound. New Aquacel (unknown) (no (unknown) (unknown) placed. (units (unkno wn) date) Hypotension has unknown) resolved. (unknown) (no (unknown) (unknown) pod 1 and it is (units (unknown) date) already saturated unknown) with blood again. Patient states that it has (unknown) (no (unknown) (unknown) possible, his (units ( unknown) date) son is available unknown) to pick him up at any time. (unknown) (no (unknown) (unknown) right total knee (units (unknown) date) arthroplasty. unknown) Course has been complicated by brief hypotension (unknown) (no (unknown) (unknown) spots along the (units (unknown) date) distal incision unknown) site that were oozing blood. Timbo were (unknown) (no (unknown) (unknown) stool softener (units (unknown) date) and laxative to unknown) prevent constipation. States he normally has a (unknown) (no (unknown) (unknown) today. Patient (units (unknown) date) notes that he has unknown) had troubles with constipation in the past and Social History date description facility 2022-12-26 00:00 Current some day smoker [facility] Vital Signs date measurement value units 2022-12-26 00:00 BMI 24.1 kg/m2 2022-12-26 00:00 height_metric 190.5 cm 2022-12-26 00:00 height_standard 75 in 2022-12-26 00:00 weight_metric 87.54 kg 2022-12-26 00:00 weight_standard 192.99 lb 2022-12-28 00:00 BP_diastolic 75 mmHg 2022-12-28 00:00 BP_systolic 154 mmHg 2022-12-28 00:00 heart_rate 82 /min 2022-12-28 00:00 o2_saturation 95 % 2022-12-28 00:00 respiration_rate 17 /min 2022-12-28 00:00 temperature_metric 36.28 C 2022-12-28 00:00 temperature_standard 97.3 F
[2023-01-04 05:42] LABS: BASOPHILS % (AUTO) 0.4 %; EOSINOPHILS # (AUTO) 0.2 10^3/uL (0.0-0.7); EOSINOPHILS % (AUTO) 2.4 %; HCT - HEMATOCRIT 30.6 % (42.0-52.0); HGB - HEMOGLOBIN 10.1 g/dL (14.0-18.0); LYMPHOCYTES % (AUTO) 12.4 %; MEAN CORPUSCULAR HEMOGLOBIN 32.3 pg (27.0-31.0); MEAN CORPUSCULAR VOLUME 97.8 fL (80.0-94.0); MEAN PLATELET VOLUME 8.9 fL (7.4-11.4); MONOCYTES # (AUTO) 0.9 10^3/uL (0.0-1.0); NEUTROPHILS % (AUTO) 73.2 %; PLT - PLATELET COUNT 347 10^3/uL (130-450); RED BLOOD COUNT 3.13 10^6/uL (4.70-6.10); RED CELL DISTRIBUTION WIDTH 13.4 % (12.0-15.0); WHITE BLOOD COUNT 8.2 x10^3/uL (4.8-10.8)
[2023-01-04 05:53] LABS: ALBUMIN 3.5 g/dL (3.2-5.5); ALBUMIN/GLOBULIN RATIO 1.2 (1.0-2.2); BILIRUBIN,TOTAL 1.1 mg/dL (0.2-1.0); CALCIUM 8.8 mg/dL (8.5-10.3); CREATININE 1.1 mg/dL (0.6-1.2); MAGNESIUM 2.1 mg/dL (1.7-2.8); POTASSIUM 3.9 mmol/L (3.5-5.0); TOTAL PROTEIN 6.4 g/dL (6.7-8.2)
--- NOTE | 2023-01-04 05:55 | ED Physician Documentation ---
History of Present Illness - Stated complaint Stated Complaint: NUMBNESS - Chief complaint Chief Complaint: Neuro - History obtained from History obtained from: Patient - Additonal information Additional information: Patient is a 82-year-old male presenting for evaluation of full body numbness that he experienced in the early hours of the morning that lasted for approximately 40 minutes. Patient recently had right knee replacement surgery at [facility]. He went to his first PT appointment yesterday. Middle the night he ambulated to the bathroom to urinate which she did without any issue. He states that when he laid down in the bed he started feeling numbness all over his entire body except his head. He states that he felt like his body was asleep. He states he was able to continue to move everything and that he got up and started walking around but this actually made his symptoms better. He denies having a headache, feeling dizzy, lightheaded having chest pain or shortness of breath. He states that his symptoms have resolved and not recurred. He does have baseline neuropathy in bilateral lower extremities which is currently unchanged. Review of Systems Constitutional: denies: Fever Cardiac: denies: Chest pain / pressure Respiratory: denies: Dyspnea GI: denies: Abdominal Pain, Vomiting Neurologic: reports: Numbness. denies: Syncope, Headache PD PAST MEDICAL HISTORY - Past Medical History Past Medical History: Yes Cardiovascular: Hypertension, Coronary artery disease Neuro: Peripheral neuropathy HEENT: Other Musculoskeletal: Osteoporosis, Other Other Past Medical History: Fused cervical & lumbar vertebrae; [place] = has hearing aids - Past Surgical History Past Surgical History: Yes Cardiovascular: Other HEENT: Other Derm: Other - Present Medications Home Medications: Ambulatory Orders Medication Instructions Recorded Confirmed Acetaminophen [Tylenol] 650 mg PO Q4HR PRN 01/04/23 01/04/23 Gabapentin [Neurontin] 600 mg PO QPM 01/04/23 01/04/23 oxyCODONE [Roxicodone] 5 mg PO Q6HR PRN 01/04/23 01/04/23 - Allergies Allergies/Adverse Reactions: Allergies Allergy/AdvReac Type Severity Reaction Status Date / Time No Known Drug Allergies Allergy Verified 01/04/23 05:13 - Social History Does the pt smoke?: No Smoking Status: Never smoker PD ED PE NORMAL - General General: Alert and oriented X 3, No acute distress, Well developed/nourished - HEENT HEENT: Atraumatic - Neck Neck: Supple, no meningeal sign - Cardiac Cardiac: RRR, No murmur, Strong equal pulses - Respiratory Respiratory: No respiratory distress, Clear bilaterally - Abdomen Abdomen: Soft, Non tender - Extremities Extremities: No calf tenderness / cord, Other (Dressing to right knee is clean and dry, bruising and swelling to right lower extremity, ) - Neuro Neuro: Alert and oriented X 3, 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 Relevant findings are: Rate 84, normal sinus rhythm, no STEMI, mild depressions seen in inferior leads, no prior for comparison, Motion artifact in lateral leads Rate: Rate (enter#) (84) Rhythm: NSR Ischemia: ST depression. No: ST elevation c/w ischemia Compare to prior EKG: Old EKG unavailable (Inferior leads) - Labs Labs: Laboratory Tests 01/04/23 01/04/23 05:35 05:35 WBC 8.2 RBC 3.13 L Hgb 10.1 L Hct 30.6 L MCV 97.8 H MCH 32.3 H MCHC 33.0 RDW 13.4 Plt Count 347 MPV 8.9 Neut # (Auto) 6.0 Lymph # (Auto) 1.0 L Pickett # (Auto) 0.9 Eos # (Auto) 0.2 Baso # (Auto) 0.0 Absolute Nucleated RBC 0.00 Nucleated RBC % 0.0 Sodium 138 Potassium 3.9 Chloride 101 Carbon Dioxide 27 Anion Gap 10.0 BUN 18 Creatinine 1.1 Estimated GFR (MDRD) 64 L Glucose 130 H Calcium 8.8 Magnesium 2.1 Total Bilirubin 1.1 H AST 50 H ALT 39 Alkaline Phosphatase 60 Total Protein 6.4 L Albumin 3.5 Globulin 2.9 Albumin/Globulin Ratio 1.2 PD Medical Decision Making - ED course Complexity details: reviewed results, re-evaluated patient, d/w patient ED course: Patient is an 82-year-old male presenting for evaluation of full body paresthesias.The last approximately 40 minutes and have since resolved. He has no deficits noted on exam.His symptoms seem like they were symmetric and also not suggestive of a stroke.An EKG was obtained to evaluate for signs of electrolyte issues or arrhythmia. Is a normal sinus rhythm. There are depressions noted in the inferior leads able to obtain a prior EKG. Patient denies feeling dizzy, lightheaded having chest pain, shortness of breath or any other symptoms to suggest cardiac ischemia at this time.He denies any symptoms that would also suggest a pulmonary embolism.CBC was reviewed and his hemoglobin is 10 which is slightly lower than prior labs. This is likely from recently having knee surgery.His chemistries were reviewed without significant findings. He has been symptom-free here. Patient was counseled on need for close follow- up with his PCP and vice principal. He is also advised on strict return precautions for the development of any new symptoms. Departure - Departure Disposition: 01 Home, Self Care Clinical Impression: Numbness and tingling, Abnormal EKG Condition: Stable Instructions: ED Paraesthesias Comments: The exact cause for the numbness you experienced earlier this morning is unclear. Your labs are reassuring including your electrolytes. Your hemoglobin is slightly lower which could be from your recent surgery. However it is not to the point where you require a blood transfusion. Your EKG which looks at your heart had some Abnormal findings. I do not have access to any old EKGs to see if these have been there previously. As you are not having any other symptoms to suggest a problem with your heart I feel it is reasonable that you have close follow-up with your primary care provider or vice principal. However if it anytime you develop symptoms such as feeling faint, chest pain, shortness of breath or have any new concerns then please return directly to an emergency department. Discharge Date/Time: 01/04/23 06:27
[2023-01-04 06:27] VITALS: BP 157/78
== END 2023-01-04 06:27 | disposition home or self-care (01) ==
LOC: EDUNIT# → ED 05:02
DX: R20.0 Anesthesia of skin (principal); R20.2 Paresthesia of skin; R94.31 Abnormal electrocardiogram [ECG] [EKG]
CPT/HCPCS: 36415; 80053; 83735; 85025; 93005; 99284

== ENCOUNTER 2023-11-07 15:43 | Outpatient (CLI) | payer MEDICARE, MEDICAID ==
[2023-11-07 15:58] LABS: BASOPHILS % (AUTO) 0.3 %; EOSINOPHILS # (AUTO) 0.4 10^3/uL (0.0-0.7); HCT - HEMATOCRIT 45.9 % (42.0-52.0); LYMPHOCYTES # (AUTO) 1.1 10^3/uL (1.5-3.5); LYMPHOCYTES % (AUTO) 18.4 %; MEAN CORPUSCULAR HEMOGLOBIN 31.9 pg (27.0-31.0); MEAN CORPUSCULAR HGB CONC 32.7 g/dL (32.0-36.0); MEAN CORPUSCULAR VOLUME 97.7 fL (80.0-94.0); MEAN PLATELET VOLUME 10.1 fL (7.4-11.4); MONOCYTES # (AUTO) 0.5 10^3/uL (0.0-1.0); MONOCYTES % (AUTO) 8.3 %; NEUTROPHILS % (AUTO) 66.8 %; PLT - PLATELET COUNT 215 10^3/uL (130-450); RED CELL DISTRIBUTION WIDTH 12.5 % (12.0-15.0)
[2023-11-07 16:14] LABS: ALBUMIN 4.2 g/dL (3.2-5.5); ALBUMIN/GLOBULIN RATIO 1.4 (1.0-2.2); ALKALINE PHOSPHATASE 88 IU/L (42-121); ALT ALANINE AMINOTRANSFERASE 11 IU/L (10-60); AST ASPARTATE AMINOTRANSFERASE 16 IU/L (10-42); BILIRUBIN,TOTAL 0.6 mg/dL (0.2-1.0); BUN - BLOOD UREA NITROGEN 21 mg/dL (6-20); CALCIUM 9.6 mg/dL (8.5-10.3); CARBON DIOXIDE - CO2 34 mmol/L (21-32); CHLORIDE 103 mmol/L (101-111); CHOL/HDL RATIO 3.4 (<5.0); CHOLESTEROL 195 mg/dL; CREATININE 1.1 mg/dL (0.6-1.3); GFR - MDRD 64 (>89); GLUCOSE 111 mg/dL (74-104); HDL CHOLESTEROL 58 mg/dL; LDL CHOLESTEROL,CALCULATED 125 mg/dL; LDL/HDL RATIO 2.2 (<3.6); POTASSIUM 4.6 mmol/L (3.5-4.5); SODIUM 139 mmol/L (135-145); TOTAL PROTEIN 7.2 g/dL (6.4-8.9); TRIGLYCERIDES 61 mg/dL (48-352); VLDL CHOLESTEROL 12 mg/dL
--- NOTE | 2023-11-07 16:22 | XRAY Report ---
PROCEDURE: Shoulder 2+V LT INDICATIONS: SHOULDER PAIN/NECK PAIN TECHNIQUE: 3 views of the shoulder were acquired. COMPARISON: None. FINDINGS: Bones: No fractures or dislocations. Moderate degenerative changes of the acromioclavicular joint a nd mild of the glenohumeral joint. No suspicious bony lesions. Visualized ribs appear intact. Soft tissues: No suspicious soft tissue calcifications. The visualized lungs are within normal limi ts. Median sternotomy wires are partially visualized IMPRESSION: No acute bony abnormality. Moderate degenerative changes of the acromioclavicular joint and mild dege nerative changes of the glenohumeral joint. Reviewed by: Edilson Torres MD on 11/07/2023 4:21 PM PST Approved by: Edilson Torres MD on 11/07/2023 4:21 PM PST Station ID: [id number]
--- NOTE | 2023-11-07 17:00 | CT Report ---
PROCEDURE: Cervical Spine WO INDICATIONS: NECK PAIN TECHNIQUE: Noncontrast 3 mm thick sections acquired from the skull base to the T4 level. Sagittal and coronal r eformats were then constructed. For radiation dose reduction, the following was used: automated exp osure control, adjustment of mA and/or kV according to patient size. COMPARISON: None. FINDINGS: Image quality: Excellent. Bones: No fractures or dislocations. Partial ankylosis of the C6 and C7 vertebral bodies. Multileve l degenerative changes of the cervical spine with facet and uncovertebral arthropathy, disc height lo ss, endplate degenerative changes and spurring. Mild anterolisthesis of C7 on T1. Visualized superio r ribs are intact. Decreased osseous mineralization. Soft tissues: Prevertebral soft tissues are normal in thickness. No paravertebral hematomas. No ap ical pneumothoraces. Atherosclerotic vascular calcifications. IMPRESSION: No acute, displaced fracture or traumatic subluxation. Multilevel degenerative changes of the cervica l spine. Asymmetric prominence of the right parotid gland with a possible subtle lesion measuring 1 x 2 cm, re commend nonemergent ultrasound for further evaluation. Reviewed by: Edilson Torres MD on 11/07/2023 4:59 PM PST Approved by: Edilson Torres MD on 11/07/2023 4:59 PM PST Station ID: [id number]
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
[2023-11-07 21:08] LABS: ESTIMATED AVERAGE GLUCOSE 117 mg/dL (70-100); HEMOGLOBIN A1c% 5.7 % (4.27-6.07)
== END 2023-11-07 15:44 | disposition home or self-care (01) ==
LOC: LAB 15:43
PROVIDERS: ATTEND Internal Medicine
DX: Z00.00 Encounter for general adult medical examination without abnormal findings (principal); I25.10 Atherosclerotic heart disease of native coronary artery without angina pectoris; R73.03 Prediabetes; R51.9 Headache, unspecified; Z79.899 Other long term (current) drug therapy; M19.012 Primary osteoarthritis, left shoulder; M47.812 Spondylosis without myelopathy or radiculopathy, cervical region; K11.8 Other diseases of salivary glands
CPT/HCPCS: 36415; 80053; 80061; 82607; 83036; 83721; 84443; 85025

== ENCOUNTER 2023-11-14 14:31 | Outpatient (CLI) | payer MEDICARE, MEDICAID ==
--- NOTE | 2023-11-14 16:25 | XRAY Report ---
PROCEDURE: Hip w/Pelvis 2-3V RT INDICATIONS: RIGHT HIP PAIN TECHNIQUE: 3 views of the hip were acquired. COMPARISON: None. FINDINGS: Bones: No fractures or dislocations. No suspicious bony lesions. Mild changes of the bilateral hi ps. Soft tissues: No suspicious soft tissue calcifications or masses. IMPRESSION: No acute bony abnormality. Mild bilateral hip degeneration. If pain persists with conservative manage ment, consider further evaluation with cross-sectional imaging such as CT or MRI. Reviewed by: Mary Whyte MD on 11/14/2023 4:24 PM PST Approved by: Mary Whyte MD on 11/14/2023 4:24 PM PST Station ID: [id number]
== END 2023-11-14 14:32 | disposition home or self-care (01) ==
LOC: DI 14:31
PROVIDERS: ATTEND Internal Medicine
DX: M16.0 Bilateral primary osteoarthritis of hip (principal)

== ENCOUNTER 2023-11-19 15:55 | Outpatient (CLI) | payer MEDICARE, MEDICAID ==
--- NOTE | 2023-11-19 21:00 | Ultrasound Report ---
PROCEDURE: Soft Tissue Head or Neck INDICATIONS: MASS OF PAROTID GLAND TECHNIQUE: Real-time scanning was performed of the parotid gland, with image documentation. COMPARISON: None FINDINGS: Examination of the right parotid gland shows a lobulated anechoic structure with through acoustic enh ancement and measures 2.3 x 0.8 x 3.4 cm in size. No internal vascularity is seen. Examination of the left parotid gland shows a similar area of hypoechogenicity measures 1.1 x 0.4 x 0 .3 cm in size and show no internal vascularity. IMPRESSION: Small lobulated fluid collections in bilateral parotid glands as described above. No irene id mass or lymphadenopathy. ACR TI-RADS definitions and recommendations: TI-RADS 1 (benign): 0 points. FNA not needed. TI-RADS 2 (not suspicious): 2 points. FNA not needed. TI-RADS 3 (mildly suspicious): 3 points. "FNA if 2.5 cm or larger, follow up if 1.5 cm or larger (at 1, 3, and 5 years). TI-RADS 4 (moderately suspicious): 4-6 points. "FNA if 1.5 cm or larger, follow up if 1 cm or larger (at 1, 2, 3, and 5 years). TI-RADS 5 (highly suspicious): 7 points or more. "FNA if 1 cm or larger, follow up if 0.5 cm or larger (every year for 5 years). Reviewed by: Rogerio Barry MD on 11/19/2023 8:58 PM PST Approved by: Rogerio Barry MD on 11/19/2023 8:58 PM PST Station ID: [id number]
== END 2023-11-19 15:56 | disposition home or self-care (01) ==
LOC: DI 15:55
PROVIDERS: ATTEND Internal Medicine
DX: R22.1 Localized swelling, mass and lump, neck (principal)

== ENCOUNTER 2024-03-02 11:25 | Emergency (ER) | payer MEDICARE, MEDICAID ==
--- NOTE | 2024-03-02 11:49 | ED Physician Documentation ---
PD HPI SKIN - Stated complaint Stated Complaint: BREAKOUT ON LT ARM - Chief complaint Chief Complaint: Wound - History obtained from History obtained from: Patient - Additional information Additional information: The pt comes to the ED with CC of lesions on his L forearm. He's not sure how long they've been there but he thinks maybe a week. He denies any trauma. No pain or itching. He is not on anticoagulants. No systemic symptoms. PD PAST MEDICAL HISTORY - Past Medical History Cardiovascular: Hypertension, Coronary artery disease Neuro: Peripheral neuropathy HEENT: Other Musculoskeletal: Osteoporosis, Other - Past Surgical History Past Surgical History: Yes Cardiovascular: Other HEENT: Other Derm: Other - Present Medications Home Medications: Ambulatory Orders Medication Instructions Recorded Confirmed Acetaminophen [Tylenol] 650 mg PO Q4HR PRN 01/04/23 01/04/23 Gabapentin [Neurontin] 600 mg PO QPM 01/04/23 01/04/23 oxyCODONE [Roxicodone] 5 mg PO Q6HR PRN 01/04/23 01/04/23 - Allergies Allergies/Adverse Reactions: Allergies Allergy/AdvReac Type Severity Reaction Status Date / Time No Known Drug Allergies Allergy Verified 03/02/24 11:34 - Social History Does the pt smoke?: No Smoking Status: Never smoker PD ED PE NORMAL - Vitals Vital signs reviewed: Yes - General General: Alert and oriented X 3, No acute distress - HEENT HEENT: Atraumatic, EOMI, Moist mucous membranes - Neck Neck: Supple, no meningeal sign - Cardiac Cardiac: Strong equal pulses - Respiratory Respiratory: No respiratory distress - Derm Derm: Warm and dry, Other (3 flat, non-indurated, non-fluctuant, purplish, circular markings on L FA that appear to be subacute contusions. No associated rash.) - Extremities Extremities: No deformity - Neuro Neuro: Alert and oriented X 3 - Psych Psych: Normal mood, Normal affect Results - Vitals Vitals: Vital Signs - 24 hr 03/02/24 03/02/24 11:31 12:02 Temperature 36.3 C L 36.1 C L Heart Rate 67 65 Respiratory 16 18 Rate Blood Pressure 190/92 H 165/85 H O2 Saturation 99 96 Oxygen O2 Source Room air PD Medical Decision Making - ED course Complexity details: considered differential, d/w patient ED course: The pt had flat, soft, asymptomatic, contusion-appearing markings on his L forearm and nowhere else. I d/w pt that I feel they are likely contusions, although the pt has no recollection of trauma, and the lesions are nontender. He is otherwise well, and stable for d/c. We have discussed the usual indications for follow-up and return. Departure - Departure Disposition: 01 Home, Self Care Clinical Impression: Arm contusion Qualifiers: Encounter type: initial encounter Laterality: left Qualified Code(s): S40.022A - Contusion of left upper arm, initial encounter Condition: Stable Instructions: ED Contusion Soft Tissue Comments: The lesions on your arm look like bruises. Is not exactly clear what caused them but they do appear to be resolving on their own. For now, we will continue to just watch them with the understanding that most likely, they will just go away on their own. If you begin to notice that the area is becoming swollen and red and painful, please have them rechecked. Forms: PCP List Discharge Date/Time: 03/02/24 12:03
[2024-03-02 12:03] VITALS: BP 165/85; O2SAT 96
== END 2024-03-02 12:03 | disposition home or self-care (01) ==
LOC: ED 11:25
DX: S50.12XA Contusion of left forearm, initial encounter (principal); X58.XXXA Exposure to other specified factors, initial encounter; I10 Essential (primary) hypertension; Z79.899 Other long term (current) drug therapy
CPT/HCPCS: 99281; 99283

== ENCOUNTER 2024-05-21 15:51 | Emergency (ER) | payer MEDICARE, MEDICAID ==
[2024-05-21 16:08] VITALS: BP 180/70; O2SAT 97
--- NOTE | 2024-05-21 16:13 | ED Physician Documentation ---
PD HPI UPPER EXT INJURY - Stated complaint Stated Complaint: L SHOULDER INJ - Chief complaint Chief Complaint: Ext Problem - History obtained from History obtained from: Patient - Additonal information Additional information: About a week ago he was pulling something he feels that he pulled his left shoulder. Since then he has had pain but it was much worse after a long drive yesterday. He called his doctor's office and was reportedly referred here for rotator cuff issue potentially. Did not see his doctor. PD PAST MEDICAL HISTORY - Past Medical History Past Medical History: Yes Cardiovascular: Hypertension, Coronary artery disease Neuro: Peripheral neuropathy HEENT: Other Musculoskeletal: Osteoporosis, Other - Past Surgical History Past Surgical History: Yes Cardiovascular: Other HEENT: Other Derm: Other - Present Medications Home Medications: Ambulatory Orders Medication Instructions Recorded Confirmed Acetaminophen [Tylenol] 650 mg PO Q4HR PRN 01/04/23 01/04/23 Gabapentin [Neurontin] 600 mg PO QPM 01/04/23 01/04/23 oxyCODONE [Roxicodone] 5 mg PO Q6HR PRN 01/04/23 01/04/23 HYDROcod/ACETAM 5/325 [[facility] 5/325] 1 - 2 tab PO Q6H PRN #15 tablet 05/21/24 - Allergies Allergies/Adverse Reactions: Allergies Allergy/AdvReac Type Severity Reaction Status Date / Time No Known Drug Allergies Allergy Verified 05/21/24 15:57 - Social History Does the pt smoke?: No Smoking Status: Never smoker Does the pt drink ETOH?: No Does the pt have substance abuse?: No - Immunizations Immunizations are current?: Yes PD ED PE NORMAL - Vitals Vital signs reviewed: Yes - General General: Alert and oriented X 3, No acute distress - Extremities Extremities: Other (Mild diffuse tenderness about the left shoulder. He is able to abduct about 30 degrees without pain but does better with passive range. Positive supraspinatus testing. Normal pulses in the wrist.) - Neuro Neuro: Alert and oriented X 3, Normal speech Eye Opening: Spontaneous Motor: Obeys Commands Verbal: Oriented GCS Score: 15 - Psych Psych: Normal mood Results - Vitals Vitals: Vital Signs - 24 hr 05/21/24 15:57 Temperature 36.8 C Heart Rate 75 Respiratory 16 Rate Blood Pressure 180/70 H O2 Saturation 97 Oxygen O2 Source Room air - Rads (name of study) Left shoulder x-ray demonstrates moderate before meals and glenohumeral joint degenerative changes Relevant Findings:: Final report received, EMP independent interpretation of test PD Medical Decision Making - ED course ED course: He presents with a mild shoulder injury, seemingly like rotator cuff issue. He was given exercises to do to prevent frozen shoulder and he needed some pain medication. Departure - Departure Disposition: 01 Home, Self Care Clinical Impression: Shoulder pain, left Qualifiers: Chronicity: acute Qualified Code(s): M25.512 - Pain in left shoulder Condition: Good Record reviewed to determine appropriate education?: Yes Instructions: Pendulum, ED Tendinitis Rotator Cuff Follow-Up: Orthopedic Care [Provider Group] Prescriptions: HYDROcod/ACETAM 5/325 [[facility] 5/325] 1 - 2 tab PO Q6H PRN #15 tablet PRN Reason: Pain Comments: The x-ray of your left shoulder looks normal. I sent a prescription for some pain medication to the [facility] pharmacy at the corner of [address] [address] [facility] here in [place]. I agree with your physician that this is potentially a rotator cuff issue. I would like you to do gentle range of motion exercises as shown in the packet and follow-up with our orthopedic clinic. Numbers on this form, you can call for an appointment. Return for new or worsening symptoms. If pain is mild just use Tylenol per package instructions. I am prescribing a short course of narcotic pain medication for you. These are potentially dangerous and addictive medications that should be used carefully. These medications may constipate you. Take an avek-zlf-vynnltc stool softener (docusate) twice daily with plenty of water while taking these medications. If you go 24 hours without a bowel movement, take qxpy-fia-cksznoc miralax, per package instructions. Do not drink or drive while taking these medications. If you received narcotic or sedating medications while in the emergency department, do not drive for 24 hours. Store this medication in a safe, secure place and out of reach of children. It is a violation of federal law to give or sell this medication to another person or to use in a manner other than prescribed. The ED will not refill narcotic prescriptions, including prescriptions lost or stolen. To dispose of unwanted medications: 1. [facility]'s Office provides a drop box for medication in pill form only (no liquids) 8:00 am to 4:30 p.m. Saturday-Saturday in the lobby of the [facility], [address] Empty pills into ziplock bag before disposal. Call [phone] for information. 2.[employer] is a free service available to all [facility] residents. Go to [email or web address] Note that many narcotic pain relievers also contain Tylenol/acetaminophen. Please ensure that your total dose of acetaminophen from all sources does not exceed 3 g (3000 mg) per day. Forms: PCP List Discharge Date/Time: 05/21/24 16:22
--- NOTE | 2024-05-21 17:31 | XRAY Report ---
PROCEDURE: Shoulder 2+V LT INDICATIONS: shoulder pain TECHNIQUE: 3 views of the shoulder were acquired. COMPARISON: 02/07/2016. FINDINGS: Bones: No fractures or dislocations. Moderate acromioclavicular and mild glenohumeral joint degenera tion. No suspicious bony lesions. Visualized ribs appear intact. Partially visualized median sterno qian wires. Soft tissues: No suspicious soft tissue calcifications. The visualized lungs are within normal limi ts. IMPRESSION: No acute bony abnormality. 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 Reviewed by: Edilson Torres MD on 05/21/2024 4:56 PM PDT Approved by: Edilson Torres MD on 05/21/2024 4:56 PM PDT Station ID: [id number]
== END 2024-05-21 16:22 | disposition home or self-care (01) ==
LOC: ED 15:51
DX: M25.512 Pain in left shoulder (principal)
CPT/HCPCS: 99283; 99284

== ENCOUNTER 2024-06-01 14:40 | Outpatient (CLI) | payer MEDICARE, MEDICAID | END 2024-06-01 14:41 | disposition home or self-care (01) | LOC: RT 14:40 | PROVIDERS: ATTEND Internal Medicine | DX: I25.10 Atherosclerotic heart disease of native coronary artery without angina pectoris (principal) | CPT/HCPCS: 93005 ==